=== PATIENT | male | born 1950 | race Caucasian/White ===

== ENCOUNTER → 2017-07-03 10:04 | Outpatient (CLI) | payer MEDICARE, OTHER, SELFPAY ==
[2017-07-03 12:37] LABS: Absolute Neutrophil Count 2.7 X10^3/uL (2.0-7.7); Basophil# 0.02 X10^3/uL; Basophil% 0.5 % (0-1); Eosinophil# 0.03 X10^3/uL; Eosinophils% 0.7 % (0-5); Hematocrit 44.7 % (40-54); Hemoglobin 15.4 g/dl (13.0-16.5); Lymphocyte % 25.5 % (19-41); Mean Corp Hgb Conc 34.5 g/gl (32-36); Mean Corpuscular Hgb 31.8 pg (27.0-32.0); Mean Corpuscular Volume 92.4 fL (80-94); Mean Platelet Vol. 9.9 fl (6.2-12.0); Monocyte# 0.44 X10^3/uL; Monocyte% 10.2 % (0-10); Neutrophil # 2.72 X10^3/uL (2.7-7.7); Neutrophil % 63.1 % (47-70); Platelet Count 218 K/mm3 (150-450); RBC Distribution Width CV 13.3 % (11.6-14.6); RBC Distribution Width SD 44.7 fl (35.1-43.9); Red Blood Count 4.84 M/mm3 (4.6-6.2); White Blood Count 4.3 K/mm3 (4.4-11.0)
[2017-07-03 12:38] LABS: POSITIVE COUNT NO; POSITIVE DIFFERENTIAL NO; POSITIVE MORPHOLOGY NO
[2017-07-03 13:04] LABS: ALB/GLOB Ratio 1.3 RATIO (0.9-2.4); AST(SGOT) 28 U/L (15-37); Alanine Aminotransfer ALT/SGPT 19 U/L (16-61); Albumin, Serum 3.8 g/dL (3.2-5.0); Alkaline Phosphatase 53 U/L (45-117); Anion Gap 8 (5-15); BUN 20 mg/dL (7-18); BUN/Creat Ratio 15.9 RATIO (10-20); Calcium,Total 8.5 mg/dL (8.5-10.1); Chloride 104 mmol/L (98-107); Creatinine, Serum 1.26 mg/dL (0.70-1.30); EST Glomerular Filtration Rate 60 mL/min (>60); Est Glom Filt Rate - Afr Amer 73 mL/min (>60); Glucose 79 mg/dL (74-106); Potassium 4.3 mmol/L (3.5-5.1); Protein, Total 6.8 g/dL (6.4-8.2); Sodium Level 139 mmol/L (136-145); Thyroid Stim Hormone (TSH) 1.24 uIU/mL (0.358-3.74)
== END ==
PROVIDERS: Family Provider Family Medicine Geriatric Medicine; PCP Family Medicine Geriatric Medicine; Visit Provider Family Medicine Geriatric Medicine
DX: I10 Essential (primary) hypertension (principal); E23.6 Other disorders of pituitary gland
CPT/HCPCS: 36415; 80053; 84403; 84443; 85025

== ENCOUNTER → 2017-08-07 06:01 | Outpatient (CLI) | payer MEDICARE, OTHER, SELFPAY ==
--- NOTE | 2017-08-07 16:30 | NEURO ---
NCS and/or EMG Patient Report Ordering Doctor: Boo Diaz Chi DATE OF SERVICE: 08/07/17 Martínez Chicas is a 67 year old male who presents for electrodiagnostic testing of the lower limbs. He reports numbness and tingling in both feet. Electrodiagnostic findings: Left peroneal motor nerve demonstrates normal distal latency and amplitude with mildly reduced conduction velocity. Right common peroneal nerve demonstrates prolonged distal latency with borderline reduced amplitude and borderline reduced conduction velocity. Normal tibial motor response bilaterally. Prolonged sural latency is noted bilaterally. Borderline prolonged superficial peroneal latency bilaterally medial plantar response is prolonged bilaterally. Prolonged H reflex noted bilaterally. Prolonged peroneal F-wave bilaterally. Electrodiagnostic impression: This is an abnormal study in the lower limbs. 1. Findings demonstrate peripheral polyneuropathy, with involvement of the sensory greater than motor nerve fibers. If there are any further questions, please not hesitate contact me.
== END ==
PROVIDERS: Family Provider Family Medicine Geriatric Medicine; PCP Family Medicine Geriatric Medicine; Visit Provider Family Medicine Geriatric Medicine
DX: R20.2 Paresthesia of skin (principal)
CPT/HCPCS: 95886; 95912

== ENCOUNTER → 2017-08-21 09:53 | Outpatient (CLI) | payer MEDICARE, OTHER, SELFPAY ==
[2017-08-21 10:34] LABS: Erythrocyte Sedimentation Rate < 1 mm/hr (0-20)
[2017-08-21 10:51] LABS: Hemoglobin A1c 4.9 % (4.2-6.3)
[2017-08-21 10:53] LABS: Vitamin B12 695 pg/mL (211-911)
[2017-08-21 11:21] LABS: Rheumatoid Factor < 10.0 IU/mL (<15); Thyroid Stim Hormone (TSH) 1.66 uIU/mL (0.358-3.74)
[2017-08-22 12:08] LABS: RNP Ab <0.2 AI (0.0-0.9); Smith Ab 0.4 AI (0.0-0.9)
[2017-08-23 09:13] LABS: ANTINUCLEAR ANTIBODIES DIRECT Negative (Negative)
[2017-08-23 20:07] LABS: Immunoglobulin A 149 mg/dL (61-437); Immunoglobulin G 781 mg/dL (700-1600); Immunoglobulin M 59 mg/dL (20-172); PROEL- A/G Ratio 1.7 (0.7-1.7); PROEL- Alpha-1 Globulin 0.2 g/dL (0.0-0.4); PROEL- Alpha-2 Globulin 0.4 g/dL (0.4-1.0); PROEL- Beta Globulin 0.8 g/dL (0.7-1.3); PROEL- Gamma Globulin 0.9 g/dL (0.4-1.8); PROEL- Globulin, Total 2.3 g/dL (2.2-3.9); PROEL- TOTAL PROTEIN 6.3 g/dL (6.0-8.5)
[2017-08-24 08:03] LABS: Creatinine, Urine 0.93 g/L (0.30-3.00); Hep C Antibodies <0.1 s/co ratio (0.0-0.9)
[2017-08-24 08:04] LABS: Immunofixation Result, Serum Comment: (.)
== END ==
PROVIDERS: Family Provider Family Medicine Geriatric Medicine; PCP Family Medicine Geriatric Medicine; Visit Provider Psychiatry & Neurology Neurology
DX: G62.9 Polyneuropathy, unspecified (principal); R53.83 Other fatigue; R73.9 Hyperglycemia, unspecified
CPT/HCPCS: 36415; 82175; 82570; 82607; 82746; 82784; 83036; 83655; 83825; 84165; 84443; 85652; 86038; 86235; 86334; 86431; 86803

== ENCOUNTER 2017-09-15 12:20 | Emergency (ER) | payer MEDICARE, OTHER, SELFPAY ==
[2017-09-15 12:22] VITALS: BP 130/62; PULSE 58; RESP 16; TEMP 37; O2SAT 97; BMI 27.5
--- NOTE | 2017-09-15 12:40 | RAD_ITS ---
STUDY: X-RAY - RIGHT KNEE REASON FOR EXAM: Male, 67 years old. Right knee pain TECHNIQUE: 4 view(s) of the knee. COMPARISON: None. FINDINGS: Normal visualized distal femur. Normal visualized proximal tibia and fibula. Normal proximal tibiofibular articulation. Normal medial femorotibial compartment. Normal lateral femorotibial compartment. Normal patellofemoral articulation. The soft tissue structures are unremarkable. RAD/Knee 4 or More Views IMPRESSION: Normal x-ray examination of the knee. Electronically Signed: Zac Gresham DO at 13:24 EDT Tel , Service support ,
--- NOTE | 2017-09-15 12:41 | ED.DCSUM_ITS ---
- ER Visit Summary Date of Service: 09/15/17 Chief Complaint: [] Right knee injury 4 years ago trying to get up History of Present Illness: The patient is a 67 M [] patient has Parkinson's disease for which she gets acupuncture, he also does exercises. He was doing exercises involving holding her weight up and down his right hand as he turned to get up holding this weight he somehow torqued his right knee, he has had pain in the right knee since he had an acupuncture therapy for the right knee and the pain actually resolved over the last few days the pain has reoccurred he comes in for evaluation he suffered no direct trauma except as above he indicates his Parkinson disease is well controlled with acupuncture he no longer shakes he is no longer stiff, he has been using a crutches intermittently to walk he has no history of any arthritic complaints are components and this is his only complaint Physical Examination: [] He is in no distress he obviously has knee pain he has a slight limp to his gait his head neck chest exam unremarkable the abdomen soft nontender his pelvis is nontender her back is nontender he has full range of motion of the hips the right knee there appears to be a small effusion involving the right knee the patella is in good position is able to flex and extend at the knee the tib-fib ankle and foot are unremarkable normal dorsi and plantarflexion normal sensation cap refill the hip exam is unremarkable for range of motion of the right hip the left lower extremities uninvolved neurologically he is awake alert his baseline the right lower extremity shows no signs of DVT the pain is directly over the knee only Test Results: [] Emergency Department Course and Treatment: [] That history of explained to him the concept of a ligamentous soft tissue bony injury x-rays obtained that shows nothing acute I explained the concept again of an occult injury he has not seen orthopedics this is been gone for 4 weeks given that he will be referred to Dr. Li weapons specialist for orthopedics he wants nothing for the pain he has crutches to use he will continue to his physical activities including acupuncture return for change in symptoms Treatment Plan: [] Disposition: [] Home stable Impression: [] Right knee injury possible occult injury This note was generated with [employer] software. It may contain incorrect words, spelling, and punctuation that were not noted in review of the chart prior to signing ED Disposition - Plan for ED Patient: Chief Complaint: Lower Extremity Injury Referrals: Boo Diaz Chi, MD [Primary Care Provider] -
--- NOTE | 2017-09-15 12:41 | ED.DEP ---
ED Disposition - Plan for ED Patient: Chief Complaint: Lower Extremity Injury Instructions: ED Sprain Knee Referrals: Boo Diaz Chi, MD [Primary Care Provider] - Paulino Li MD [STAFF PHYSICIAN] -
[2017-09-15 13:59] VITALS: BP 128/61; PULSE 60; RESP 16; O2SAT 98
== END 2017-09-15 14:00 | disposition home or self-care (01) ==
LOC: ED 13:12
PROVIDERS: Emergency Provider Emergency Medicine; Family Provider Family Medicine Geriatric Medicine; PCP Family Medicine Geriatric Medicine
DX: S89.91XA Unspecified injury of right lower leg, initial encounter (principal); X50.1XXA Overexertion from prolonged static or awkward postures, initial encounter; Y93.B9 Activity, other involving muscle strengthening exercises; Y92.9 Unspecified place or not applicable; G20 Parkinson's disease; Z79.899 Other long term (current) drug therapy
CPT/HCPCS: 73564; 99282

== ENCOUNTER → 2018-01-01 15:26 | Outpatient (CLI) | payer MEDICARE, OTHER, SELFPAY ==
[2018-01-01 16:14] LABS: Absolute Lymphocyte Count 0.88 X10^3/ul (0.83-4.51); Absolute Neutrophil Count 3.1 X10^3/uL (2.0-7.7); Basophil# 0.04 X10^3/uL; Basophil% 0.9 % (0-1); Eosinophil# 0.02 X10^3/uL; Eosinophils% 0.4 % (0-5); Hematocrit 43.8 % (40-54); Hemoglobin 15.1 g/dl (13.0-16.5); Lymphocyte # 0.88 X10^3/ul (4.0); Lymphocyte % 19.4 % (19-41); Mean Corp Hgb Conc 34.5 g/gl (32-36); Mean Corpuscular Hgb 31.3 pg (27.0-32.0); Mean Corpuscular Volume 90.7 fL (80-94); Mean Platelet Vol. 9.8 fl (6.2-12.0); Monocyte# 0.53 X10^3/uL; Monocyte% 11.7 % (0-10); Neutrophil # 3.07 X10^3/uL (2.7-7.7); Neutrophil % 67.6 % (47-70); POSITIVE COUNT NO; POSITIVE DIFFERENTIAL NO; POSITIVE MORPHOLOGY NO; Platelet Count 272 K/mm3 (150-450); RBC Distribution Width CV 13.4 % (11.6-14.6); RBC Distribution Width SD 44.2 fl (35.1-43.9); Red Blood Count 4.83 M/mm3 (4.6-6.2); White Blood Count 4.5 K/mm3 (4.4-11.0)
[2018-01-01 16:31] LABS: Vitamin D,25 Hydroxy 62.2 ng/mL (29.95-100.01)
[2018-01-01 16:39] LABS: ALB/GLOB Ratio 1.3 RATIO (0.9-2.4); AST(SGOT) 23 U/L (15-37); Alanine Aminotransfer ALT/SGPT 28 U/L (16-61); Albumin, Serum 3.8 g/dL (3.2-5.0); Alkaline Phosphatase 50 U/L (45-117); Anion Gap 12 (5-15); BUN 19 mg/dL (7-18); BUN/Creat Ratio 13.8 RATIO (10-20); Calcium,Total 8.8 mg/dL (8.5-10.1); Chloride 106 mmol/L (98-107); Creatinine, Serum 1.38 mg/dL (0.70-1.30); EST Glomerular Filtration Rate 54 mL/min (>60); Est Glom Filt Rate - Afr Amer 66 mL/min (>60); Glucose 74 mg/dL (74-106); PSA,Total - Annual Screen 2.27 ng/mL (0.00-4.00); Potassium 3.9 mmol/L (3.5-5.1); Protein, Total 6.8 g/dL (6.4-8.2); Sodium Level 143 mmol/L (136-145); Thyroid Stim Hormone (TSH) 2.04 uIU/mL (0.358-3.74)
[2018-01-03 13:44] LABS: Hep C Antibodies 0.1 s/co ratio (0.0-0.9)
== END ==
PROVIDERS: Family Provider Family Medicine Geriatric Medicine; PCP Family Medicine Geriatric Medicine; Visit Provider Family Medicine Geriatric Medicine
DX: I10 Essential (primary) hypertension (principal); E23.6 Other disorders of pituitary gland; E55.9 Vitamin D deficiency, unspecified; Z13.89 Encounter for screening for other disorder; Z12.5 Encounter for screening for malignant neoplasm of prostate
CPT/HCPCS: 36415; 80053; 82306; 84153; 84403; 84443; 85025; 86803; G0103

== ENCOUNTER → 2018-07-03 13:50 | Outpatient (CLI) | payer MEDICARE, OTHER, SELFPAY ==
[2018-07-03 16:25] LABS: Absolute Lymphocyte Count 0.89 X10^3/ul (0.83-4.51); Basophil# 0.03 X10^3/uL; Basophil% 0.7 % (0-1); Eosinophil# 0.03 X10^3/uL; Eosinophils% 0.7 % (0-5); Hematocrit 47.1 % (40-54); Hemoglobin 15.7 g/dl (13.0-16.5); Lymphocyte # 0.89 X10^3/ul (4.0); Lymphocyte % 19.7 % (19-41); Mean Corp Hgb Conc 33.3 g/gl (32-36); Mean Corpuscular Hgb 30.4 pg (27.0-32.0); Mean Corpuscular Volume 91.3 fL (80-94); Monocyte# 0.53 X10^3/uL; Monocyte% 11.7 % (0-10); Neutrophil # 3.03 X10^3/uL (2.7-7.7); Platelet Count 266 K/mm3 (150-450); RBC Distribution Width CV 14.6 % (11.6-14.6); RBC Distribution Width SD 48.1 fl (35.1-43.9); Red Blood Count 5.16 M/mm3 (4.6-6.2); White Blood Count 4.5 K/mm3 (4.4-11.0)
[2018-07-03 16:31] LABS: POSITIVE COUNT NO; POSITIVE DIFFERENTIAL NO; POSITIVE MORPHOLOGY NO
[2018-07-03 16:38] LABS: Vitamin D,25 Hydroxy 74.6 ng/mL (29.95-100.01)
[2018-07-03 16:39] LABS: ALB/GLOB Ratio 1.2 RATIO (0.9-2.4); AST(SGOT) 24 U/L (15-37); Alanine Aminotransfer ALT/SGPT 26 U/L (16-61); Albumin, Serum 3.9 g/dL (3.2-5.0); Alkaline Phosphatase 52 U/L (45-117); Anion Gap 7 (5-15); BUN 16 mg/dL (7-18); BUN/Creat Ratio 11.9 RATIO (10-20); Calcium,Total 8.7 mg/dL (8.5-10.1); Chloride 108 mmol/L (98-107); Creatinine, Serum 1.35 mg/dL (0.70-1.30); EST Glomerular Filtration Rate 56 mL/min (>60); Est Glom Filt Rate - Afr Amer 67 mL/min (>60); Globulin 3.2 g/dL (2.2-4.2); Glucose 67 mg/dL (74-106); PSA,Total - Annual Screen 3.11 ng/mL (0.00-4.00); Potassium 3.9 mmol/L (3.5-5.1); Protein, Total 7.1 g/dL (6.4-8.2); Sodium Level 140 mmol/L (136-145); Thyroid Stim Hormone (TSH) 1.61 uIU/mL (0.358-3.74)
== END ==
PROVIDERS: Family Provider Family Medicine Geriatric Medicine; PCP Family Medicine Geriatric Medicine; Visit Provider Family Medicine Geriatric Medicine
DX: I10 Essential (primary) hypertension (principal); Z12.5 Encounter for screening for malignant neoplasm of prostate; E23.6 Other disorders of pituitary gland; E55.9 Vitamin D deficiency, unspecified
CPT/HCPCS: 36415; 80053; 82306; 84153; 84403; 84443; 85025; G0103

== ENCOUNTER → 2018-08-29 06:35 | Outpatient (CLI) | payer MEDICARE, OTHER, SELFPAY ==
[2018-08-11 09:48] VITALS: BMI 26.9
--- NOTE | 2018-08-29 06:40 | ECHOCS_ITS ---
Reason For Study: CP Procedure This was a 2D Doppler, Color Flow transthoracic echocardiogram. The study was technically difficult. Contrast injection was performed. Exam performed in department. Left Ventricle Normal LV size. Left ventricular systolic function is normal. The estimated ejection fraction is 65 %. Diastolic function is indeterminate. No regional wall motion abnormalities noted. Right Ventricle Normal RV size. Normal systolic function. Atria The left atrium is mildly enlarged. The right atrium is mildly enlarged. No doppler evidence for ASD. Mitral Valve There is no mitral annular calcification. Normal mitral valve. Trivial mitral valve insufficiency. Tricuspid Valve Normal tricuspid valve. Mild tricuspid valve insufficiency. Right ventricular systolic pressure estimated to be 25 mmHg. Aortic Valve Trisinus/trileaflet aortic valve. Normal aortic valve. Mild (1+) aortic valve insufficiency. Pulmonic Valve The pulmonic valve is not well visualized. Great Vessels Normal sized aortic root. Pericardium/Pleural No pericardial effusion. Medication Diluted definity 4ml given slow IV push to enhance endocardial definition. MMode/2D Measurements & Calculations LVIDd: 4.1 cm IVSd: 1.1 cm Ao root diam: 3.8 cm LVIDs: 2.6 cm LVPWd: 1.3 cm LA dimension: 3.4 cm RVDd: 3.8 cm FS: 37.2 % LAV(MOD-bp): 62.0 ml LA A4 area: 21.6 cm2 RA A4 area: 20.7 cm2 LAV(MOD-bp) Indexed: 32.3 ml/m2 LAV(MOD-sp2): 52.6 ml LAV(MOD-sp4): 70.5 ml Time Measurements MV dec time: 0.25 sec Doppler Measurements & Calculations MV E max dean: 64.5 cm/sec Lat Peak E' Dean: 6.8 cm/sec Med Peak E' Dean: 6.9 cm/sec MV A max dean: 81.5 cm/sec E/E' lat: 9.5 E/E' med: 9.3 MV E/A: 0.79 MV V2 max: 87.6 cm/sec MV P1/2t max dean: 70.1 cm/sec Ao V2 max: 117.8 cm/sec MV max P.1 mmHg MV P1/2t: 78.1 msec Ao max P.5 mmHg MV V2 mean: 44.9 cm/sec MV dec slope: 262.8 cm/sec2 MV mean P.97 mmHg MV V2 VTI: 25.1 cm MVA(P1/2t): 2.8 cm2 AI max dean: 514.2 cm/sec LV V1 max: 86.1 cm/sec PA V2 max: 114.0 cm/sec AI max P.8 mmHg LV V1 max P.0 mmHg AI dec slope: 207.8 cm/sec2 AI P1/2t: 724.8 msec TR max dean: 231.7 cm/sec TR max P.5 mmHg Interpretation Summary The study was technically difficult. Contrast injection was performed. Left ventricular systolic function is normal. The estimated ejection fraction is 65 %. The left atrium is mildly enlarged. The right atrium is mildly enlarged. Trivial mitral valve insufficiency. Mild tricuspid valve insufficiency. Mild (1+) aortic valve insufficiency. Right ventricular systolic pressure estimated to be 25 mmHg. Diastolic function is indeterminate. Ordering Physician: Lm Paulino Referring Physician: Lm Paulino Performed By: Nuno Schaffer RCS
--- NOTE | 2018-08-29 13:20 | STRESSREP_ITS ---
Stress Test Report Date: 08/29/2018 Procedure: Exercise tolerance test/imaging study Indications: Chest pain Consent: Per the patient Procedure: The patient exercised on a Dewey protocol for 7 minutes completing Stage II and 1 minute of Stage III achieving a peak heart rate of 162 bpm (108 % predicted maximal heart rate) with a peak blood pressure 170/98 mmHg and a peak MET capacity of 8 METs. The baseline ECG demonstrated normal sinus rhythm. The peak exercise ECG demonstrated no obvious ECG changes. There were occasional PACs, nonconducted PACs, repetitive PACs, and PVCs during exercise and recovery and a brief episode of nonsustained wide-complex tachycardia comparing compatible with an acceleration-dependent aberrancy. The functional capacity was considered good. There was no complaint of chest discomfort during exercise or recovery. The examination was discontinued secondary to dyspnea. Impression: 1. Technically adequate (percent predicted maximal heart rate greater than 85%) exercise tolerance test 2. Peak exercise ECG with no obvious ECG changes 3. There were occasional PACs, nonconducted PACs, repetitive PACs, and PVCs during exercise and recovery and a brief episode of nonsustained wide-complex tachycardia comparing compatible with an acceleration-dependent aberrancy. 4. Nuclear images pending Myocardial perfusion imaging study: Technique: The patient was injected with 10 mCi of technetium 99m Cardiolite and subsequently rest SPECT Cardiolite nuclear imaging was obtained in the horizontal long, vertical long, and short axis views. The patient exercised on a Dewey protocol for 7 minutes completing Stage II and 1 minute of Stage III achieving a peak heart rate of 162 bpm (108 % predicted maximal heart rate) with a peak blood pressure 170/98 mmHg and a peak MET capacity of 8 METs.The patient was injected with 33 mCi of technetium 99m Cardiolite and subsequently stress SPECT Cardiolite nuclear imaging was obtained in the horizontal long, vertical long, and short axis views. A gated Cardiolite study at peak stress was obtained. Interpretation: Rest and stress SPECT Cardiolite nuclear imaging status post realignment, normalization, and attenuation correction, demonstrates the appearance of relative uniform tracer uptake and myocardial perfusion appearing within normal limits. There is end systolic thickening and brightening. The gated Cardiolite study demonstrates myocardial thickening and inward wall motion. The reported LVEF is 69 %. Impression: 1. Rest and stress SPECT Cardiolite nuclear imaging demonstrate relative uniform tracer uptake and myocardial perfusion appearing within normal limits. 2. The gated Cardiolite study reports an LVEF of 69 %. This note was generated with [employer] software. It may contain incorrect words, spelling, and punctuation that were not noted in checking the note before signing.
== END ==
PROVIDERS: Family Provider Family Medicine Geriatric Medicine; PCP Family Medicine Geriatric Medicine; Referring Provider Internal Medicine Cardiovascular Disease; Visit Provider Internal Medicine Cardiovascular Disease
DX: R07.9 Chest pain, unspecified (principal); I34.0 Nonrheumatic mitral (valve) insufficiency
CPT/HCPCS: 78452; 93017; 93306; A9500; Q9957; A4216; C8929

== ENCOUNTER → 2019-01-09 08:36 | Outpatient (CLI) | payer MEDICARE, OTHER, SELFPAY ==
[2018-08-11 09:48] VITALS: BMI 26.9
[2019-01-09 13:21] LABS: Absolute Lymphocyte Count 0.92 X10^3/uL (0.83-4.51); Absolute Neutrophil Count 2.9 X10^3/uL (2.0-7.7); Basophil# 0.03 X10^3/uL; Basophil% 0.7 % (0-1); Eosinophil# 0.05 X10^3/uL; Eosinophils% 1.2 % (0-5); Hematocrit 39.8 % (40-54); Hemoglobin 13.1 g/dL (13.0-16.5); Lymphocyte # 0.92 X10^3/ul (4.0); Lymphocyte % 21.4 % (19-41); Mean Corp Hgb Conc 32.9 g/dL (32-36); Mean Corpuscular Hgb 29.5 pg (27.0-32.0); Mean Corpuscular Volume 89.6 fL (80-94); Mean Platelet Vol. 9.6 fl (6.2-12.0); Monocyte# 0.43 X10^3/uL; NRBC Flagged by Analyzer 0 % (0-5); Neutrophil # 2.86 X10^3/uL (2.7-7.7); Neutrophil % 66.7 % (47-70); Platelet Count 270 K/mm3 (150-450); RBC Distribution Width CV 13.1 % (11.6-14.6); RBC Distribution Width SD 43.3 fl (35.1-43.9); Red Blood Count 4.44 M/mm3 (4.6-6.2); White Blood Count 4.3 K/mm3 (4.4-11.0)
[2019-01-09 13:42] LABS: Vitamin D,25 Hydroxy 63.4 ng/mL (29.95-100.01)
[2019-01-09 13:52] LABS: ALB/GLOB Ratio 1.3 RATIO (0.9-2.4); AST(SGOT) 17 U/L (15-37); Alanine Aminotransfer ALT/SGPT 15 U/L (16-61); Albumin, Serum 3.5 g/dL (3.2-5.0); Alkaline Phosphatase 56 U/L (45-117); Anion Gap 5 (5-15); BUN 20 mg/dL (7-18); BUN/Creat Ratio 15.3 RATIO (10-20); Calcium,Total 8.2 mg/dL (8.5-10.1); Chloride 111 mmol/L (98-107); Creatinine, Serum 1.31 mg/dL (0.70-1.30); EST Glomerular Filtration Rate 57 mL/min (>60); Est Glom Filt Rate - Afr Amer 70 mL/min (>60); Globulin 2.7 g/dL (2.2-4.2); Glucose 84 mg/dL (74-106); Potassium 3.9 mmol/L (3.5-5.1); Protein, Total 6.2 g/dL (6.4-8.2); Sodium Level 141 mmol/L (136-145); Thyroid Stim Hormone (TSH) 1.42 uIU/mL (0.358-3.74)
== END ==
PROVIDERS: Family Provider Family Medicine Geriatric Medicine; PCP Family Medicine Geriatric Medicine; Visit Provider Family Medicine Geriatric Medicine
DX: I10 Essential (primary) hypertension (principal); E23.6 Other disorders of pituitary gland; E55.9 Vitamin D deficiency, unspecified; Z12.5 Encounter for screening for malignant neoplasm of prostate
CPT/HCPCS: 36415; 80053; 82306; 84403; 84443; 85025

== ENCOUNTER → 2019-03-20 12:21 | Outpatient (CLI) | payer MEDICARE, OTHER, SELFPAY ==
[2018-08-11 09:48] VITALS: BMI 26.9
[2019-03-25 03:06] LABS: Lyme IgG P18 Ab Absent (.); Lyme IgG P23 Ab Absent (.); Lyme IgG P28 Ab Absent (.); Lyme IgG P30 Ab Absent (.); Lyme IgG P39 Ab Absent (.); Lyme IgG P41 Ab Absent (.); Lyme IgG P45 Ab Absent (.); Lyme IgG P58 Ab Absent (.); Lyme IgG P66 Ab Absent (.); Lyme IgG P93 Ab Absent (.); Lyme IgM P23 Ab Absent (.); Lyme IgM P39 Ab Absent (.); Lyme IgM P41 Ab Absent (.)
[2019-03-25 11:46] LABS: Lyme IgG WB Interpretation Negative (.); Lyme IgM WB Interpretation Negative (.)
== END ==
PROVIDERS: Family Provider Family Medicine Geriatric Medicine; PCP Family Medicine Geriatric Medicine; Referring Provider Family Medicine Geriatric Medicine; Visit Provider Family Medicine Geriatric Medicine
DX: T07.XXXA Unspecified multiple injuries, initial encounter (principal); X58.XXXA Exposure to other specified factors, initial encounter; Y93.9 Activity, unspecified; Y92.9 Unspecified place or not applicable; Y99.9 Unspecified external cause status
CPT/HCPCS: 36415; 86617

== ENCOUNTER → 2019-05-14 10:37 | Outpatient (CLI) | payer MEDICARE, OTHER, SELFPAY ==
[2018-08-11 09:48] VITALS: BMI 26.9
--- NOTE | 2019-05-14 10:43 | VDLE_ITS ---
Reason For Study: edema RIGHT LEFT GSV is normal. GSV is normal. CFV is compressible, spontaneous, phasic, CFV is compressible, spontaneous, phasic, competent and demonstrates normal competent, and demonstrates normal augmentation. augmentation. FV is compressible, spontaneous, phasic, FV is compressible, spontaneous, phasic, competent and demonstrates normal competent and demonstrates normal augmentation. augmentation. POP V is compressible, spontaneous, phasic, POP V is compressible, spontaneous, phasic, competent and demonstrates normal competent and demonstrates normal augmentation. augmentation. T/P Trunk is compressible. T/P Trunk is compressible. PTV is compressible. PTV is compressible. RT PerV is compressible. LT PerV is compressible. Procedure Exam performed in department. The exam was diagnostic. A preliminary report was called and/or faxed to Dr. Diaz's office. Interpretation Summary Deep veins of the lower extremities are bilaterally patent and compressible segmentally. There is no evidence of deep vein thrombosis on either side. Valvular competence appears intact within the proximal deep venous systems bilaterally. The great saphenous veins appear bilaterally patent and compressible segmentally. Ordering Physician: Boo Diaz Performed By: Kobe Green RVT
--- NOTE | 2019-05-14 11:08 | RAD_ITS ---
STUDY: X-RAY - LEFT ANKLE REASON FOR EXAM: Male, 68 years old. Ankle injury last week with bruising, pain and swelling. TECHNIQUE: 2 view(s) of the ankle. COMPARISON: None. FINDINGS: Normal visualized distal tibia and fibula. Normal medial and lateral malleoli. Normal tibiotalar articulation and ankle mortise. Normal visualized talus and calcaneus. The visualized subtalar, talonavicular, calcaneocuboid and tarsal articulations are normal. The soft tissue structures are unremarkable. RAD/Ankle 2 Views IMPRESSION: Normal x-ray examination of the ankle. Electronically Signed: Sarbjit Gould MD at 11:34 EST , Service support ,
== END ==
PROVIDERS: Family Provider Family Medicine Geriatric Medicine; PCP Family Medicine Geriatric Medicine; Referring Provider Family Medicine Geriatric Medicine; Visit Provider Family Medicine Geriatric Medicine
DX: R60.0 Localized edema (principal); M25.579 Pain in unspecified ankle and joints of unspecified foot
CPT/HCPCS: 73600; 93970

== ENCOUNTER → 2019-07-17 09:02 | Outpatient (CLI) | payer MEDICARE, OTHER, SELFPAY ==
[2018-08-11 09:48] VITALS: BMI 26.9
[2019-07-17 12:36] LABS: Absolute Lymphocyte Count 0.99 X10^3/uL (0.83-4.51); Absolute Neutrophil Count 2.9 X10^3/uL (2.0-7.7); Basophil# 0.04 X10^3/uL; Basophil% 0.9 % (0-1); Eosinophil# 0.07 X10^3/uL; Eosinophils% 1.5 % (0-5); Hemoglobin 13.8 g/dL (13.0-16.5); Lymphocyte # 0.99 X10^3/ul (4.0); Lymphocyte % 21.7 % (19-41); Mean Corp Hgb Conc 32.9 g/dL (32-36); Mean Corpuscular Hgb 28.5 pg (27.0-32.0); Mean Corpuscular Volume 86.6 fL (80-94); Mean Platelet Vol. 10.4 fl (6.2-12.0); Monocyte# 0.61 X10^3/uL; Monocyte% 13.3 % (0-10); NRBC Flagged by Analyzer 0 % (0-5); Neutrophil # 2.85 X10^3/uL (2.7-7.7); Neutrophil % 62.4 % (47-70); Platelet Count 243 K/mm3 (150-450); RBC Distribution Width CV 14.5 % (11.6-14.6); RBC Distribution Width SD 45.5 fl (35.1-43.9); Red Blood Count 4.85 M/mm3 (4.6-6.2); White Blood Count 4.6 K/mm3 (4.4-11.0)
[2019-07-17 12:41] LABS: Vitamin D,25 Hydroxy 78.7 ng/mL
[2019-07-17 12:49] LABS: ALB/GLOB Ratio 1.2 RATIO (0.9-2.4); AST(SGOT) 22 U/L (15-37); Alanine Aminotransfer ALT/SGPT 18 U/L (16-61); Albumin, Serum 3.6 g/dL (3.2-5.0); Alkaline Phosphatase 55 U/L (45-117); Anion Gap 4 (5-15); BUN 18 mg/dL (7-18); BUN/Creat Ratio 12.3 RATIO (10-20); Calcium,Total 8.8 mg/dL (8.5-10.1); Chloride 112 mmol/L (98-107); Creatinine, Serum 1.46 mg/dL (0.70-1.30); EST Glomerular Filtration Rate 51 mL/min (>60); Est Glom Filt Rate - Afr Amer 61 mL/min (>60); Globulin 3.1 g/dL (2.2-4.2); Glucose 75 mg/dL (74-106); Potassium 4.3 mmol/L (3.5-5.1); Protein, Total 6.7 g/dL (6.4-8.2); Sodium Level 141 mmol/L (136-145); Thyroid Stim Hormone (TSH) 1.66 uIU/mL (0.358-3.74)
== END ==
PROVIDERS: PCP Family Medicine Geriatric Medicine; Visit Provider Family Medicine Geriatric Medicine
DX: I10 Essential (primary) hypertension (principal); E23.6 Other disorders of pituitary gland; E55.9 Vitamin D deficiency, unspecified
CPT/HCPCS: 36415; 80053; 82306; 84403; 84443; 85025

== ENCOUNTER → 2020-01-15 09:22 | Outpatient (CLI) | payer MEDICARE, OTHER, SELFPAY ==
[2019-12-01 10:54] VITALS: BMI 26.6
[2020-01-15 12:12] LABS: Absolute Lymphocyte Count 1.03 X10^3/uL (0.83-4.51); Absolute Neutrophil Count 2.4 X10^3/uL (2.0-7.7); Basophil# 0.03 X10^3/uL; Basophil% 0.7 % (0-1); Eosinophil# 0.06 X10^3/uL; Eosinophils% 1.5 % (0-5); Hematocrit 43.4 % (40-54); Hemoglobin 14.8 g/dL (13.0-16.5); Lymphocyte # 1.03 X10^3/ul (4.0); Lymphocyte % 25.7 % (19-41); Mean Corp Hgb Conc 34.1 g/dL (32-36); Mean Corpuscular Hgb 31.6 pg (27.0-32.0); Mean Corpuscular Volume 92.5 fL (80-94); Mean Platelet Vol. 9.5 fl (6.2-12.0); Monocyte# 0.51 X10^3/uL; Monocyte% 12.7 % (0-10); NRBC Flagged by Analyzer 0 % (0-5); Neutrophil # 2.37 X10^3/uL (2.7-7.7); Neutrophil % 59.2 % (47-70); Platelet Count 246 K/mm3 (150-450); RBC Distribution Width CV 13.4 % (11.6-14.6); RBC Distribution Width SD 45.4 fl (35.1-43.9); Red Blood Count 4.69 M/mm3 (4.6-6.2)
[2020-01-15 12:53] LABS: Vitamin D,25 Hydroxy 84.1 ng/mL
[2020-01-15 13:19] LABS: ALB/GLOB Ratio 1.4 RATIO (0.9-2.4); AST(SGOT) 25 U/L (15-37); Alanine Aminotransfer ALT/SGPT 24 U/L (16-61); Albumin, Serum 3.9 g/dL (3.2-5.0); Alkaline Phosphatase 54 U/L (45-117); Anion Gap 5 (5-15); BUN 19 mg/dL (7-18); BUN/Creat Ratio 13.4 RATIO (10-20); Calcium,Total 8.8 mg/dL (8.5-10.1); Chloride 108 mmol/L (98-107); Creatinine, Serum 1.42 mg/dL (0.70-1.30); EST Glomerular Filtration Rate 52 mL/min (>60); Est Glom Filt Rate - Afr Amer 63 mL/min (>60); Globulin 2.8 g/dL (2.2-4.2); Glucose 57 mg/dL (74-106); Potassium 4.1 mmol/L (3.5-5.1); Protein, Total 6.7 g/dL (6.4-8.2); Sodium Level 143 mmol/L (136-145); Thyroid Stim Hormone (TSH) 1.64 uIU/mL (0.358-3.74)
== END ==
PROVIDERS: PCP Family Medicine Geriatric Medicine; Visit Provider Family Medicine Geriatric Medicine
DX: E23.6 Other disorders of pituitary gland (principal); E55.9 Vitamin D deficiency, unspecified; I10 Essential (primary) hypertension
CPT/HCPCS: 36415; 80053; 82306; 84403; 84443; 85025

== ENCOUNTER → 2020-02-02 09:56 | Outpatient (CLI) | payer MEDICARE, OTHER, SELFPAY ==
[2020-02-02 08:52] VITALS: BMI 26.3
[2020-02-02 11:50] LABS: Vitamin B12 444 pg/mL (211-911)
[2020-02-03 16:09] LABS: Free Lambda Light Chains 12.8 mg/L (5.7-26.3)
== END ==
PROVIDERS: PCP Family Medicine Geriatric Medicine; Referring Provider Psychiatry & Neurology Neurology; Visit Provider Psychiatry & Neurology Neurology
DX: G62.9 Polyneuropathy, unspecified (principal)
CPT/HCPCS: 36415; 82607; 82746; 83883

== ENCOUNTER → 2020-03-01 09:33 | Outpatient (CLI) | payer MEDICARE, OTHER, SELFPAY ==
[2020-02-02 08:52] VITALS: BMI 26.3
[2020-03-02 16:08] LABS: Albumin 3.8 g/dL (2.9-4.4); Alpha-1-Globulins 0.2 g/dL (0.0-0.4); Alpha-2-Globulins 0.6 g/dL (0.4-1.0); Gamma Globulin 0.8 g/dL (0.4-1.8); Immunoglobulin A 173 mg/dL (61-437); Immunoglobulin G 906 mg/dL (603-1613); Immunoglobulin M 59 mg/dL (15-143); PROEL- TOTAL PROTEIN 6.2 g/dL (6.0-8.5)
== END ==
PROVIDERS: PCP Family Medicine Geriatric Medicine; Referring Provider Nurse Practitioner Family; Visit Provider Nurse Practitioner Family
DX: G62.9 Polyneuropathy, unspecified (principal)
CPT/HCPCS: 36415; 82784; 84165; 86334; 86335

== ENCOUNTER → 2020-07-12 11:43 | Outpatient (CLI) | payer MEDICARE, OTHER, SELFPAY ==
[2020-03-16 11:05] VITALS: BMI 27.0
[2020-07-12 12:27] LABS: Absolute Lymphocyte Count 0.92 X10^3/uL (0.83-4.51); Absolute Neutrophil Count 3.4 X10^3/uL (2.0-7.7); Basophil# 0.03 X10^3/uL; Basophil% 0.6 % (0-1); Eosinophil# 0.05 X10^3/uL; Hematocrit 43.9 % (40-54); Hemoglobin 14.9 g/dL (13.0-16.5); Lymphocyte # 0.92 X10^3/ul (4.0); Lymphocyte % 19.1 % (19-41); Mean Corp Hgb Conc 33.9 g/dL (32-36); Mean Corpuscular Hgb 30.9 pg (27.0-32.0); Mean Corpuscular Volume 91.1 fL (80-94); Mean Platelet Vol. 9.5 fl (6.2-12.0); Monocyte# 0.43 X10^3/uL; Monocyte% 8.9 % (0-10); NRBC Flagged by Analyzer 0 % (0-5); Neutrophil # 3.37 X10^3/uL (2.7-7.7); Platelet Count 281 K/mm3 (150-450); RBC Distribution Width SD 42.7 fl (35.1-43.9); Red Blood Count 4.82 M/mm3 (4.6-6.2); White Blood Count 4.8 K/mm3 (4.4-11.0)
[2020-07-12 12:33] LABS: Vitamin D,25 Hydroxy 62.6 ng/mL
[2020-07-12 12:54] LABS: ALB/GLOB Ratio 1.2 RATIO (0.9-2.4); AST(SGOT) 25 U/L (15-37); Alanine Aminotransfer ALT/SGPT 20 U/L (16-61); Albumin, Serum 3.6 g/dL (3.2-5.0); Alkaline Phosphatase 63 U/L (45-117); Anion Gap 6 (5-15); BUN 17 mg/dL (7-18); Calcium,Total 8.7 mg/dL (8.5-10.1); Chloride 108 mmol/L (98-107); Creatinine, Serum 1.31 mg/dL (0.70-1.30); EST Glomerular Filtration Rate 57 mL/min (>60); Est Glom Filt Rate - Afr Amer 69 mL/min (>60); Globulin 2.9 g/dL (2.2-4.2); Glucose 78 mg/dL (74-106); Potassium 4.3 mmol/L (3.5-5.1); Protein, Total 6.5 g/dL (6.4-8.2); Sodium Level 142 mmol/L (136-145); Thyroid Stim Hormone (TSH) 1.33 uIU/mL (0.358-3.74)
== END ==
PROVIDERS: PCP Family Medicine Geriatric Medicine; Visit Provider Family Medicine Geriatric Medicine
DX: E23.6 Other disorders of pituitary gland (principal); E55.9 Vitamin D deficiency, unspecified; I10 Essential (primary) hypertension
CPT/HCPCS: 36415; 80053; 82306; 84403; 84443; 85025

== ENCOUNTER → 2020-08-25 14:57 | Outpatient (CLI) | payer MEDICARE, OTHER, SELFPAY ==
[2020-03-16 11:05] VITALS: BMI 27.0
[2020-08-29 16:08] LABS: Albumin 3.6 g/dL (2.9-4.4); Alpha-1-Globulins 0.2 g/dL (0.0-0.4); Alpha-2-Globulins 0.4 g/dL (0.4-1.0); Free Kappa Light Chains 27.4 mg/L (3.3-19.4); Free Lambda Light Chains 12.7 mg/L (5.7-26.3); Gamma Globulin 0.7 g/dL (0.4-1.8); Immunoglobulin A 146 mg/dL (61-437); Immunoglobulin G 761 mg/dL (603-1613); Immunoglobulin M 51 mg/dL (15-143); PROEL- TOTAL PROTEIN 5.7 g/dL (6.0-8.5)
== END ==
PROVIDERS: PCP Family Medicine Geriatric Medicine; Referring Provider Nurse Practitioner Family; Visit Provider Nurse Practitioner Family
DX: G62.9 Polyneuropathy, unspecified (principal)
CPT/HCPCS: 36415; 82784; 83883; 84165; 86334

== ENCOUNTER → 2020-10-05 06:33 | Outpatient (CLI) | payer MEDICARE, OTHER, SELFPAY ==
[2020-09-22 13:53] VITALS: BMI 26.9
--- NOTE | 2020-10-05 09:17 | STRESSREP_ITS ---
Stress Test Report Date: 10-05-2020 Procedure: Exercise tolerance test/imaging study Indications: Shortness of breath/dyspnea on exertion; chest pain; fatigue Consent: Per the patient Procedure: The patient exercised on a Dewey protocol for 4 minutes and 10 completing Stage I and 1 minute and 10 seconds of Stage II achieving a peak heart rate of 129 bpm (87% predicted maximal heart rate) with a peak blood pressure 190/84 mmHg and a peak MET capacity of 6 METs. The baseline ECG demonstrated normal sinus rhythm; anteroseptal WV of indeterminate age cannot be excluded. The peak exercise ECG demonstrated somatic/motion artifact with no obvious ECG changes. There was a rare PAC pretest and during exercise and an occasional PVC during exercise and an occasional PAC and PVC during recovery as well as a rare ventricular couplet/triplet during recovery. The functional capacity was considered decreased. There was no complaint of chest discomfort during exercise or recovery. The examination was discontinued secondary to dyspnea and leg dragging. Impression: 1. Technically adequate (percent predicted maximal heart rate greater than 85%) exercise tolerance test 2. Peak exercise ECG with somatic/motion artifact with no obvious ECG changes 3. There was a rare PAC pretest and during exercise and an occasional PVC during exercise and an occasional PAC and PVC during recovery as well as a rare ventricular couplets/triplets during recovery 4. Nuclear images pending Myocardial perfusion imaging study: Technique: The patient was injected with 10.9 mCi of technetium 99m Cardiolite and subsequently rest SPECT Cardiolite nuclear imaging was obtained in the horizontal long, vertical long, and short axis views. The patient exercised on a Dewey protocol for 4 minutes and 10 completing Stage I and 1 minute and 10 seconds of Stage II achieving a peak heart rate of 129 bpm (87% predicted maximal heart rate) with a peak blood pressure 190/84 mmHg and a peak MET capacity of 6 METs. The patient was injected with 33.5 mCi of technetium 99m Cardiolite and subsequently stress SPECT Cardiolite nuclear imaging was obtained in the horizontal long, vertical long, and short axis views. A gated Cardiolite study at peak stress was obtained. Interpretation: Rest and stress SPECT Cardiolite nuclear imaging status post realignment, normalization, and attenuation correction, demonstrates the appearance of body motion during image acquisition and otherwise relative uniform tracer uptake and myocardial perfusion appearing within normal limits. There is end systolic thickening and brightening. The gated Cardiolite study demonstrates myocardial thickening and inward wall motion. The reported LVEF is 68%. Impression: 1. Rest and stress SPECT Cardiolite nuclear imaging demonstrate the appearance of an element of body motion during image acquisition and otherwise relative uniform tracer uptake and myocardial perfusion appearing within normal limits with no myocardial perfusion findings considered diagnostic for stress-induced myocardial ischemia. 2. The gated Cardiolite study reports an LVEF of 68%. This note was generated with [employer] software. It may contain incorrect words, spelling, and punctuation that were not noted in checking the note before signing.
== END ==
PROVIDERS: PCP Family Medicine Geriatric Medicine; Referring Provider Physician Assistant Medical; Visit Provider Physician Assistant Medical
DX: R07.89 Other chest pain (principal)
CPT/HCPCS: 78452; 93017; A9500; A4216

== ENCOUNTER → 2020-11-10 09:54 | Outpatient (CLI) | payer MEDICARE, OTHER, SELFPAY ==
[2020-09-22 13:53] VITALS: BMI 26.9
[2020-11-10 12:04] LABS: Absolute Lymphocyte Count 0.78 X10^3/uL (0.83-4.51); Absolute Neutrophil Count 2.2 X10^3/uL (2.0-7.7); Basophil# 0.03 X10^3/uL; Basophil% 0.9 % (0-1); Eosinophil# 0.04 X10^3/uL; Eosinophils% 1.1 % (0-5); Hematocrit 43.2 % (40-54); Hemoglobin 14.4 g/dL (13.0-16.5); Lymphocyte # 0.78 X10^3/ul (0.83-4.51); Lymphocyte % 22.3 % (19-41); Mean Corp Hgb Conc 33.3 g/dL (32-36); Mean Corpuscular Hgb 29.7 pg (27.0-32.0); Mean Corpuscular Volume 89.1 fL (80-94); Monocyte# 0.49 X10^3/uL; NRBC Flagged by Analyzer 0 % (0-5); Neutrophil # 2.15 X10^3/uL (2.7-7.7); Neutrophil % 61.7 % (47-70); Platelet Count 211 K/mm3 (150-450); RBC Distribution Width CV 13.2 % (11.6-14.6); RBC Distribution Width SD 42.9 fl (35.1-43.9); Red Blood Count 4.85 M/mm3 (4.6-6.2); White Blood Count 3.5 K/mm3 (4.4-11.0)
[2020-11-10 12:17] LABS: Vitamin B12 890 pg/mL (211-911); Vitamin D,25 Hydroxy 73.3 ng/mL
[2020-11-10 12:24] LABS: ALB/GLOB Ratio 1.4 RATIO (0.9-2.4); AST(SGOT) 21 U/L (15-37); Alanine Aminotransfer ALT/SGPT 21 U/L (16-61); Albumin, Serum 3.7 g/dL (3.2-5.0); Alkaline Phosphatase 55 U/L (45-117); Anion Gap 2 (5-15); BUN 20 mg/dL (7-18); BUN/Creat Ratio 15.2 RATIO (10-20); Calcium,Total 8.4 mg/dL (8.5-10.1); Chloride 109 mmol/L (98-107); Creatinine, Serum 1.32 mg/dL (0.70-1.30); EST Glomerular Filtration Rate 57 mL/min (>60); Est Glom Filt Rate - Afr Amer 69 mL/min (>60); Globulin 2.7 g/dL (2.2-4.2); Glucose 78 mg/dL (74-106); Protein, Total 6.4 g/dL (6.4-8.2); Sodium Level 139 mmol/L (136-145)
== END ==
PROVIDERS: PCP Family Medicine Geriatric Medicine; Visit Provider Family Medicine Geriatric Medicine
DX: E55.9 Vitamin D deficiency, unspecified (principal); R53.83 Other fatigue
CPT/HCPCS: 36415; 80053; 82306; 82607; 84443; 85025

== ENCOUNTER → 2020-11-16 08:04 | Outpatient (CLI) | payer MEDICARE, OTHER, SELFPAY ==
[2020-09-22 13:53] VITALS: BMI 26.9
--- NOTE | 2020-11-16 12:52 | PFTCOMP_ITS ---
COMPLETE PULMONARY FUNCTION TEST INTERPRETATION Brief HPI: Patient is a 70 year old male, currently under the care of Dr. Diaz, who presents to [facility] for complete pulmonary function tests secondary to diagnosis of dyspnea. Respiratory therapist reports good effort and reproducible results. Interpretation: Forced expiration spirometry shows no large airways obstructive ventilatory defect with an FEV1 of 136% predicted. There is no significant bronchodilator response by strict ATS criteria. Spirograms are of good quality and plateau normally. The respiratory flow volume loop shows a normal pattern. Lung volumes by body plethysmography show an elevated total lung capacity at 8. 46 L, 141% predicted. All other lung volumes are increased symmetrically. Diffusion capacity by carbon monoxide is elevated at 133% predicted. The airway resistance is normal. No previous pulmonary function tests were available for review. Impression: These pulmonary function tests are within normal limits. Could consider a bronchoprovocation study if asthma is a consideration.
== END ==
PROVIDERS: PCP Family Medicine Geriatric Medicine; Referring Provider Family Medicine Geriatric Medicine; Visit Provider Family Medicine Geriatric Medicine
DX: R06.02 Shortness of breath (principal)
CPT/HCPCS: 94060; 94726; 94729

== ENCOUNTER → 2020-12-22 | Outpatient (CLI) | payer MEDICARE, OTHER, SELFPAY ==
[2020-12-22 11:36] VITALS: BMI 26.9
[2020-12-22 19:09] LABS: Probe Check PASS; Specimen Processing Control PASS
== END | disposition home or self-care (01) ==
LOC: LABSPEC 16:22
PROVIDERS: PCP Family Medicine Geriatric Medicine; Visit Provider Physician Assistant
DX: U07.1 COVID-19 (principal); R06.02 Shortness of breath; R53.1 Weakness
CPT/HCPCS: 87635; U0005; U0003

== ENCOUNTER → 2021-01-19 14:11 | Outpatient (CLI) | payer MEDICARE, OTHER, SELFPAY ==
[2021-01-19 15:06] LABS: Absolute Lymphocyte Count 0.84 X10^3/uL (0.83-4.51); Absolute Neutrophil Count 2.8 X10^3/uL (2.0-7.7); Basophil# 0.03 X10^3/uL; Basophil% 0.7 % (0-1); Eosinophil# 0.13 X10^3/uL; Hematocrit 41.5 % (40-54); Hemoglobin 13.8 g/dL (13.0-16.5); Lymphocyte # 0.84 X10^3/ul (0.83-4.51); Lymphocyte % 19.6 % (19-41); Mean Corp Hgb Conc 33.3 g/dL (32-36); Mean Corpuscular Hgb 30.1 pg (27.0-32.0); Mean Corpuscular Volume 90.4 fL (80-94); Mean Platelet Vol. 9.7 fl (6.2-12.0); Monocyte# 0.52 X10^3/uL; Monocyte% 12.1 % (0-10); NRBC Flagged by Analyzer 0 % (0-5); Neutrophil # 2.75 X10^3/uL (2.7-7.7); Neutrophil % 64.4 % (47-70); Platelet Count 200 K/mm3 (150-450); RBC Distribution Width CV 14.6 % (11.6-14.6); RBC Distribution Width SD 47.6 fl (35.1-43.9); Red Blood Count 4.59 M/mm3 (4.6-6.2); White Blood Count 4.3 K/mm3 (4.4-11.0)
[2021-01-19 15:34] LABS: Vitamin D,25 Hydroxy 62.8 ng/mL
[2021-01-19 15:39] LABS: AST(SGOT) 27 U/L (15-37); Alanine Aminotransfer ALT/SGPT 49 U/L (16-61); Albumin, Serum 3.2 g/dL (3.2-5.0); Alkaline Phosphatase 63 U/L (45-117); Anion Gap 5 (5-15); BUN 16 mg/dL (7-18); BUN/Creat Ratio 13.7 RATIO (10-20); Calcium,Total 8.4 mg/dL (8.5-10.1); Chloride 110 mmol/L (98-107); Creatinine, Serum 1.17 mg/dL (0.70-1.30); EST Glomerular Filtration Rate 65 mL/min (>60); Est Glom Filt Rate - Afr Amer 79 mL/min (>60); Globulin 3.1 g/dL (2.2-4.2); Glucose 96 mg/dL (74-106); Potassium 3.9 mmol/L (3.5-5.1); Protein, Total 6.3 g/dL (6.4-8.2); Sodium Level 141 mmol/L (136-145); Thyroid Stim Hormone (TSH) 2.69 uIU/mL (0.358-3.74)
== END ==
PROVIDERS: PCP Family Medicine Geriatric Medicine; Referring Provider Family Medicine Geriatric Medicine; Visit Provider Family Medicine Geriatric Medicine
DX: E23.6 Other disorders of pituitary gland (principal); E55.9 Vitamin D deficiency, unspecified; I10 Essential (primary) hypertension
CPT/HCPCS: 36415; 80053; 82306; 84403; 84443; 85025

== ENCOUNTER → 2021-02-23 14:06 | Outpatient (CLI) | payer MEDICARE, OTHER, SELFPAY ==
[2021-02-23 15:22] LABS: PSA,Total - Annual Screen 2.77 ng/mL (0.00-4.00)
== END ==
PROVIDERS: PCP Family Medicine Geriatric Medicine; Referring Provider Urology; Visit Provider Urology
DX: Z12.5 Encounter for screening for malignant neoplasm of prostate (principal)
CPT/HCPCS: 36415; 84153; G0103

== ENCOUNTER 2021-07-19 13:46 | Outpatient (CLI) | payer MEDICARE, OTHER, SELFPAY ==
[2021-07-19 17:10] LABS: Absolute Lymphocyte Count 1.08 X10^3/uL (0.83-4.51); Absolute Neutrophil Count 3.2 X10^3/uL (2.0-7.7); Basophil# 0.03 X10^3/uL; Basophil% 0.6 % (0-1); Eosinophil# 0.06 X10^3/uL; Eosinophils% 1.2 % (0-5); Hematocrit 42.9 % (40-54); Lymphocyte # 1.08 X10^3/ul (0.83-4.51); Lymphocyte % 22.2 % (19-41); Mean Corpuscular Hgb 31.1 pg (27.0-32.0); Mean Platelet Vol. 9.8 fl (6.2-12.0); Monocyte# 0.52 X10^3/uL; Monocyte% 10.7 % (0-10); NRBC Flagged by Analyzer 0 % (0-5); Neutrophil # 3.17 X10^3/uL (2.7-7.7); Neutrophil % 65.1 % (47-70); Platelet Count 214 K/mm3 (150-450); RBC Distribution Width CV 14.4 % (11.6-14.6); RBC Distribution Width SD 46.7 fl (35.1-43.9); Red Blood Count 4.82 M/mm3 (4.6-6.2); White Blood Count 4.9 K/mm3 (4.4-11.0)
[2021-07-19 18:12] LABS: Anion Gap 6 (5-15); BUN 22 mg/dL (7-18); BUN/Creat Ratio 17.1 RATIO (10-20); Calcium,Total 8.5 mg/dL (8.5-10.1); Chloride 108 mmol/L (98-107); Creatinine, Serum 1.29 mg/dL (0.70-1.30); EST Glomerular Filtration Rate 58 mL/min (>60); Est Glom Filt Rate - Afr Amer 70 mL/min (>60); Glucose 98 mg/dL (74-106); Sodium Level 141 mmol/L (136-145); Thyroid Stim Hormone (TSH) 1.74 uIU/mL (0.358-3.74)
[2021-07-24 11:07] LABS: Free Lambda Light Chains 13.1 mg/L (5.7-26.3)
== END 2021-07-19 23:59 | disposition home or self-care (01) ==
LOC: MTLAB 16:33 → LAB 16:35
PROVIDERS: Physician Assistant Medical; PCP Family Medicine Geriatric Medicine; Referring Provider Nurse Practitioner Family; Visit Provider Nurse Practitioner Family
DX: R00.2 Palpitations (principal); R53.83 Other fatigue; R06.02 Shortness of breath; I49.3 Ventricular premature depolarization
CPT/HCPCS: 36415; 80048; 83883; 84443; 85025; 86335

== ENCOUNTER 2021-07-20 12:57 | Outpatient (CLI) | payer MEDICARE, OTHER, SELFPAY | END 2021-07-20 23:59 | disposition home or self-care (01) | LOC: POLAB3 13:01 | PROVIDERS: PCP Family Medicine Geriatric Medicine; Visit Provider Family Medicine Geriatric Medicine | DX: E23.6 Other disorders of pituitary gland (principal); E55.9 Vitamin D deficiency, unspecified; I10 Essential (primary) hypertension ==

== ENCOUNTER 2021-07-27 15:25 | Outpatient (CLI) | payer MEDICARE, OTHER, SELFPAY ==
[2021-07-27 17:25] LABS: Absolute Lymphocyte Count 0.92 X10^3/uL (0.83-4.51); Absolute Neutrophil Count 3.2 X10^3/uL (2.0-7.7); Basophil# 0.04 X10^3/uL; Basophil% 0.9 % (0-1); Eosinophil# 0.07 X10^3/uL; Eosinophils% 1.5 % (0-5); Hematocrit 41.5 % (40-54); Hemoglobin 14.5 g/dL (13.0-16.5); Lymphocyte # 0.92 X10^3/ul (0.83-4.51); Lymphocyte % 19.7 % (19-41); Mean Corp Hgb Conc 34.9 g/dL (32-36); Mean Corpuscular Hgb 30.3 pg (27.0-32.0); Mean Corpuscular Volume 86.8 fL (80-94); Mean Platelet Vol. 9.6 fl (6.2-12.0); Monocyte# 0.45 X10^3/uL; Monocyte% 9.6 % (0-10); NRBC Flagged by Analyzer 0 % (0-5); Neutrophil % 68.3 % (47-70); Platelet Count 250 K/mm3 (150-450); RBC Distribution Width CV 14.3 % (11.6-14.6); RBC Distribution Width SD 45.4 fl (35.1-43.9); Red Blood Count 4.78 M/mm3 (4.6-6.2); White Blood Count 4.7 K/mm3 (4.4-11.0)
[2021-07-27 17:36] LABS: Vitamin D,25 Hydroxy 65.7 ng/mL
[2021-07-27 17:43] LABS: ALB/GLOB Ratio 1.4 RATIO (0.9-2.4); AST(SGOT) 25 U/L (15-37); Alanine Aminotransfer ALT/SGPT 17 U/L (16-61); Albumin, Serum 3.8 g/dL (3.2-5.0); Alkaline Phosphatase 53 U/L (45-117); Anion Gap 2 (5-15); BUN 19 mg/dL (7-18); BUN/Creat Ratio 14.2 RATIO (10-20); Chloride 110 mmol/L (98-107); Creatinine, Serum 1.34 mg/dL (0.70-1.30); EST Glomerular Filtration Rate 56 mL/min (>60); Est Glom Filt Rate - Afr Amer 67 mL/min (>60); Globulin 2.7 g/dL (2.2-4.2); Glucose 105 mg/dL (74-106); Protein, Total 6.5 g/dL (6.4-8.2); Sodium Level 140 mmol/L (136-145); Thyroid Stim Hormone (TSH) 1.73 uIU/mL (0.358-3.74)
== END 2021-07-27 23:59 | disposition home or self-care (01) ==
LOC: POLAB3 15:26
PROVIDERS: PCP Family Medicine Geriatric Medicine; Visit Provider Family Medicine Geriatric Medicine
DX: I10 Essential (primary) hypertension (principal); E23.6 Other disorders of pituitary gland; E55.9 Vitamin D deficiency, unspecified
CPT/HCPCS: 36415; 80053; 82306; 84403; 84443; 85025

== ENCOUNTER 2021-08-21 10:00 | Outpatient (RCR) | payer MEDICARE, OTHER, SELFPAY ==
--- NOTE | 2021-07-27 13:54 | HP.PTEVAL ---
Patient's Visit Information ABELINO MANCERA is a 71 year old M referred to Physical Therapy by PAPO Hu with a diagnosis of Parkinsons. Date of Evaluation: 07/27/21 Physical Therapist: Yaa Alvarado DPT - Visit Plan Frequency: 2x /Week Duration: 3 Weeks Plan: Balance Assessment. Focus on coordination, dual tasking- safety with uneven terrain - Subjective Patient reports that his doctor sent him here for Parkinson's. He had COVID in the fall but then he hasn't gotten his strength and endurance back. His left hand has started tremors. He was working out with a color strainer- and he tore his meniscus on the right side. It is not painful but effects his walking. People at work are worried about him dragging his feet. Work: [employer]- he is walking the rolon and doesn't use a walking stick. He slipped twice on mud yesterday and fell- did not hit his head or sustain any injury. He drives a lot and when he gets out of the car he has to stop and get himself righted. He has neuropathy on his feet- had a treatment and it went away- every now and then he has some but is controlled by using his [employer] Machine. Uses [place] tennis shoes when walking and new balance when he is at work- is unable to wear work boots due to the weight. No falls due to Parkinson's. Diagnosed in 2013. Works out 2-4 hours a day. 25 min of stretching, balance activities, weights, walking and riding a bike outside- acupuncture every 2 weeks. Balance: BOSU- different small items, balance beams- eyes open and eyes closed. PMHx/Meds: see list - Objective Posture: good throughout treatment session. Gait: ataxic- decreased stance on the right LE- does not achieve full extension of the right knee. HR/TR: able without UE A. SLS: 30 sec each without loss of balance. Balance: see FGA- Tandem stance bilateral for 15 seconds each without loss of balance- 30 sec eyes closed narrow KELLIE mild sway. ROM: WFL in all planes in LE. Strength: 5/5 throughout LE and good core strength/stabilization. Flex: HS: moderate, Gastroc: moderate - Balance/Special Test Scores Functional Gait Assessment Score: 20 % Disability: 33.3400 Lower Extremity Functional Score: 59 - Goals Goal 1:: Patient will be I with HEP and progression Goal Time Frame: 4-6 Weeks Goal 2:: Patient will improve his FGA to WFL Goal Time Frame: 4-6 Weeks - Rehabilitation Potential Physical Therapy Diagnosis: Patient presents with hypomobility- he has decreased coordination leading to abnormal gait pattern and decreased safety with ADL's. Rehabilitation Potential: Fair - Anticipated Interventions Patient/Client Instruction: Educate patient on: Benefits of Fitness Program Therapeutic Exercise to Include: Strength training, Endurance training, Balance training, Coordination, Agility training, Body mechanics, Postural training, Flexibilty training, Gait and locomotor training, Neuromotor development, via [employer] Balance Mas, Dynamic Lumbar Stabilization For the Purpose of:: To improve muscle performance and motor function Thank you for the opportunity to evaluate your patient. For Medicare and Medicare HMO plans, please review the plan of care and approve it. It will need to be FAXED BACK to us at [phone] for Medicare purposes. For Medicare only, by signing this I certify the plan of care. Please let me know if there are questions or concerns regarding this plan of care. Physician Signature: Date:
--- NOTE | 2021-07-31 09:30 | HP.PTCOM ---
PT Communication Note 07/31/[address] Magnolia Peters, EXECUTIVE [employer] OF [employer]ETING[employer] , Thank you for the referral of Martínez to [facility] for balance assessment. I have enclosed a copy for your review. In summary, he was slow on the Limits of stability test particularly in backwards weight shift. He was slightly low on the vestibular portion of the Sensory Organization Test. With these results in mind, I plan to see him 2x/week for 3-4 weeks to work on exercises to address these concerns as well as general strength, dual tasking and BIG weight shifting execises. Exit strategy is to d/c to an HEP. Please let me know if there are questions regarding this plan. Thank you. Sincerely, Hieu Reeder DPT, OCS, CSCS Contact Information
--- NOTE | 2021-08-21 10:19 | HP.PTDCSUM ---
It has been my pleasure to treat ABELINO MANCERA referred by Magnolia Peters, PAPO, with the diagnosis of Parkinsons for a total of 8 visit(s). Discharge Date: 08/21/21 Please see the following information for a summary of their discharge status. Subjective: Working on exercises at home regularly. Feels like he is on the right track and getting better with his ex. Doing the ones he has been given regularly at home in the am. Has Bosu and uses it for balance. Ready to be done with PT and continue on his own. back to neuro in 3 months. No changes to carbodopa recently. % Improvement: 75 Objective/Function: Walks well with head turns. Much better FGA and feels confiudent with HEP. Ready for d/c. Goal 1:: Patient will be I with HEP and progression Goal Progress: Goal Met Goal 2:: Patient will improve his FGA to WFL Goal Progress: Goal Met Plan: d/c to HEP Discharge Comments: Will continue via HEP If there are questions or concerns regarding this patient's physical therapy, please feel free to call me at [phone]. Thank you for the referral of this patient. Sincerely, Hieu Reeder, DPT, OCS, CSCS Balance/Gait/Functional tests - Balance/Special Test Scores Functional Gait Assessment Score: 29 % Disability: 3.3400 Lower Extremity Functional Score: 61 Tug Test: <10 sec.=free mobile
== END 2021-08-21 12:18 | disposition home or self-care (01) ==
LOC: PT 10:00
PROVIDERS: PCP Family Medicine Geriatric Medicine; Referring Provider Nurse Practitioner Family; Visit Provider Nurse Practitioner Family
DX: G20 Parkinson's disease (principal)
CPT/HCPCS: 97110; 97162; 97164; 97750

== ENCOUNTER → 2021-10-18 | Outpatient (CLI) | payer MEDICARE, OTHER, SELFPAY ==
[2021-10-18 17:16] LABS: Albumin, Serum 3.7 g/dL (3.2-5.0); BUN 22 mg/dL (7-18); BUN/Creat Ratio 14.8 RATIO (10-20); Calcium,Total 8.8 mg/dL (8.5-10.1); Chloride 106 mmol/L (98-107); Creatinine, Serum 1.49 mg/dL (0.70-1.30); EST Glomerular Filtration Rate 49 mL/min (>60); Est Glom Filt Rate - Afr Amer 59 mL/min (>60); Glucose 93 mg/dL (74-106); Phosphorus 3.1 mg/dL (2.5-4.9); Potassium 4.3 mmol/L (3.5-5.1); Sodium Level 140 mmol/L (136-145)
== END | disposition home or self-care (01) ==
PROVIDERS: PCP Family Medicine Geriatric Medicine; Visit Provider Internal Medicine Nephrology
DX: N18.30 Chronic kidney disease, stage 3 unspecified (principal)
CPT/HCPCS: 36415; 80069

== ENCOUNTER → 2021-11-09 | Outpatient (CLI) | payer MEDICARE, OTHER, SELFPAY ==
--- NOTE | 2021-11-09 16:52 | US_ITS ---
INDICATION: CKD, STAGE 3A EXAMINATION: US Kidney(s) complete (eg, kidneys and bladder) TECHNIQUE: Ridley scale and color doppler images were obtained of the kidneys. COMPARISON: Unenhanced CT abdomen and pelvis from 12/09/2015. Renal ultrasound from 08/13/2014. FINDINGS: RIGHT KIDNEY: Right kidney measures 10.8 x 5.6 x 5.8 cm with cortical thickness of 1.9 cm. There is no hydronephrosis. A few hyperechoic foci within right kidney compatible with calcifications/stones, largest measuring 1.7 cm. Small anechoic 1.5 cm cyst at lower pole of right kidney. LEFT KIDNEY: Left kidney measures 10.7 x 4.1 x 4.6 cm with cortical thickness of 1.6 cm. There is no hydronephrosis. A few hyperechoic foci within left kidney compatible with calcifications/stones, largest measuring 1.3 cm. There are few anechoic left renal cysts, largest is exophytic at left lower pole measuring 2 x 1.5 x 1.7 cm. URINARY BLADDER: No urinary bladder intraluminal filling defects or significant wall thickening demonstrated. Urinary bladder volume 89 mL with minimal post void residual of 5 mL. Nonvisualized ureteral jets. US/Kidney and Bladder IMPRESSION: Normal size kidneys with nonobstructing renal calculi and simple appearing renal cysts. Electronically Signed: Luis Madsen MD at 6:21 EDT ,
== END | disposition home or self-care (01) ==
LOC: US 16:50
PROVIDERS: PCP Family Medicine Geriatric Medicine; Visit Provider Internal Medicine Nephrology
DX: N18.31 Chronic kidney disease, stage 3a (principal); N20.0 Calculus of kidney; N28.1 Cyst of kidney, acquired
CPT/HCPCS: 76770

== ENCOUNTER → 2021-11-22 | Outpatient (CLI) | payer MEDICARE, OTHER, SELFPAY ==
[2021-11-22 16:16] LABS: Albumin, Serum 3.5 g/dL (3.2-5.0); BUN 24 mg/dL (7-18); BUN/Creat Ratio 16.9 RATIO (10-20); Calcium,Total 8.9 mg/dL (8.5-10.1); Chloride 111 mmol/L (98-107); Creatinine, Serum 1.42 mg/dL (0.70-1.30); EST Glomerular Filtration Rate 52 mL/min (>60); Est Glom Filt Rate - Afr Amer 63 mL/min (>60); Glucose 94 mg/dL (74-106); Potassium 4.5 mmol/L (3.5-5.1); Sodium Level 141 mmol/L (136-145)
== END | disposition home or self-care (01) ==
LOC: POLAB3 15:36
PROVIDERS: PCP Family Medicine Geriatric Medicine; Visit Provider Internal Medicine Nephrology
DX: N18.31 Chronic kidney disease, stage 3a (principal)
CPT/HCPCS: 36415; 80069

== ENCOUNTER → 2022-02-01 | Outpatient (CLI) | payer MEDICARE, OTHER, SELFPAY ==
[2022-02-01 11:58] LABS: Absolute Lymphocyte Count 0.67 X10^3/uL (0.83-4.51); Basophil# 0.04 X10^3/uL; Basophil% 0.6 % (0-1); Eosinophil# 0.06 X10^3/uL; Eosinophils% 0.9 % (0-5); Hematocrit 42.9 % (40-54); Hemoglobin 14.6 g/dL (13.0-16.5); Lymphocyte # 0.67 X10^3/ul (0.83-4.51); Lymphocyte % 10.4 % (19-41); Mean Corpuscular Hgb 31.4 pg (27.0-32.0); Mean Corpuscular Volume 92.3 fL (80-94); Mean Platelet Vol. 9.9 fl (6.2-12.0); Monocyte% 10.8 % (0-10); NRBC Flagged by Analyzer 0 % (0-5); Neutrophil # 4.99 X10^3/uL (2.7-7.7); Neutrophil % 77.1 % (47-70); Platelet Count 238 K/mm3 (150-450); RBC Distribution Width CV 13.6 % (11.6-14.6); Red Blood Count 4.65 M/mm3 (4.6-6.2); White Blood Count 6.5 K/mm3 (4.4-11.0)
[2022-02-01 12:17] LABS: Vitamin D,25 Hydroxy 49.1 ng/mL
[2022-02-01 12:25] LABS: ALB/GLOB Ratio 1.2 RATIO (0.9-2.4); AST(SGOT) 24 U/L (15-37); Alanine Aminotransfer ALT/SGPT 27 U/L (16-61); Albumin, Serum 3.8 g/dL (3.2-5.0); Alkaline Phosphatase 55 U/L (45-117); Anion Gap 5 (5-15); BUN 18 mg/dL (7-18); BUN/Creat Ratio 13.3 RATIO (10-20); Calcium,Total 9.1 mg/dL (8.5-10.1); Chloride 109 mmol/L (98-107); Creatinine, Serum 1.35 mg/dL (0.70-1.30); EST Glomerular Filtration Rate 55 mL/min (>60); Est Glom Filt Rate - Afr Amer 67 mL/min (>60); Globulin 3.1 g/dL (2.2-4.2); Glucose 76 mg/dL (74-106); Potassium 4.4 mmol/L (3.5-5.1); Protein, Total 6.9 g/dL (6.4-8.2); Sodium Level 142 mmol/L (136-145); Thyroid Stim Hormone (TSH) 1.59 uIU/mL (0.358-3.74)
== END | disposition home or self-care (01) ==
LOC: POLAB3 09:17
PROVIDERS: PCP Family Medicine Geriatric Medicine; Visit Provider Family Medicine Geriatric Medicine
DX: I10 Essential (primary) hypertension (principal); E55.9 Vitamin D deficiency, unspecified
CPT/HCPCS: 36415; 80053; 82306; 84443; 85025

== ENCOUNTER → 2022-03-22 | Outpatient (CLI) | payer MEDICARE, OTHER, SELFPAY ==
[2022-03-22 12:14] LABS: PSA,Total - Annual Screen 3.29 ng/mL (0.00-4.00)
== END | disposition home or self-care (01) ==
LOC: LAB 10:40
PROVIDERS: PCP Family Medicine Geriatric Medicine; Visit Provider Registered Nurse
DX: Z12.5 Encounter for screening for malignant neoplasm of prostate (principal)
CPT/HCPCS: 36415; 84153; G0103

== ENCOUNTER → 2022-05-30 | Outpatient (CLI) | payer MEDICARE, OTHER, SELFPAY ==
[2022-05-30 15:41] LABS: Albumin, Serum 3.5 g/dL (3.2-5.0); BUN 19 mg/dL (7-18); BUN/Creat Ratio 15.6 RATIO (10-20); Calcium,Total 8.7 mg/dL (8.5-10.1); Chloride 109 mmol/L (98-107); Creatinine, Serum 1.22 mg/dL (0.70-1.30); EST Glomerular Filtration Rate 62 mL/min (>60); Est Glom Filt Rate - Afr Amer 75 mL/min (>60); Glucose 94 mg/dL (74-106); Phosphorus 3.3 mg/dL (2.5-4.9); Potassium 4.2 mmol/L (3.5-5.1); Sodium Level 139 mmol/L (136-145)
== END | disposition home or self-care (01) ==
LOC: LAB.FUTURE 13:28 → POLAB3 13:36
PROVIDERS: PCP Family Medicine Geriatric Medicine; Visit Provider Internal Medicine Nephrology
DX: N18.31 Chronic kidney disease, stage 3a (principal)
CPT/HCPCS: 36415; 80069

== ENCOUNTER → 2022-05-30 | Outpatient (CLI) | payer MEDICARE, OTHER, SELFPAY | END | disposition home or self-care (01) | LOC: LAB.FUTURE 13:29 → POLAB3 13:33 | PROVIDERS: PCP Family Medicine Geriatric Medicine; Visit Provider Internal Medicine Nephrology | DX: N18.31 Chronic kidney disease, stage 3a (principal) ==

== ENCOUNTER → 2022-08-02 | Outpatient (CLI) | payer MEDICARE, OTHER, SELFPAY ==
[2022-08-02 12:36] LABS: Absolute Lymphocyte Count 0.88 X10^3/uL (0.83-4.51); Absolute Neutrophil Count 2.9 X10^3/uL (2.0-7.7); Basophil# 0.05 X10^3/uL; Basophil% 1.1 % (0-1); Eosinophil# 0.06 X10^3/uL; Eosinophils% 1.4 % (0-5); Hematocrit 42.6 % (40-54); Lymphocyte # 0.88 X10^3/ul (0.83-4.51); Mean Corp Hgb Conc 32.9 g/dL (32-36); Mean Corpuscular Hgb 29.4 pg (27.0-32.0); Mean Corpuscular Volume 89.5 fL (80-94); Mean Platelet Vol. 9.5 fl (6.2-12.0); Monocyte# 0.46 X10^3/uL; Monocyte% 10.5 % (0-10); NRBC Flagged by Analyzer 0 % (0-5); Neutrophil # 2.93 X10^3/uL (2.7-7.7); Neutrophil % 66.8 % (47-70); Platelet Count 279 K/mm3 (150-450); RBC Distribution Width CV 13.6 % (11.6-14.6); RBC Distribution Width SD 44.3 fl (35.1-43.9); Red Blood Count 4.76 M/mm3 (4.6-6.2); White Blood Count 4.4 K/mm3 (4.4-11.0)
[2022-08-02 13:05] LABS: Vitamin D,25 Hydroxy 56.3 ng/mL
[2022-08-02 13:39] LABS: ALB/GLOB Ratio 1.5 RATIO (0.9-2.4); AST(SGOT) 33 U/L (15-37); Alanine Aminotransfer ALT/SGPT 28 U/L (16-61); Albumin, Serum 3.8 g/dL (3.2-5.0); Alkaline Phosphatase 50 U/L (45-117); Anion Gap 8 (5-15); BUN 20 mg/dL (7-18); BUN/Creat Ratio 14.1 RATIO (10-20); Calcium,Total 8.7 mg/dL (8.5-10.1); Chloride 107 mmol/L (98-107); Creatinine, Serum 1.42 mg/dL (0.70-1.30); EST Glomerular Filtration Rate 52 mL/min (>60); Est Glom Filt Rate - Afr Amer 63 mL/min (>60); Globulin 2.6 g/dL (2.2-4.2); Glucose 70 mg/dL (74-106); Potassium 4.1 mmol/L (3.5-5.1); Protein, Total 6.4 g/dL (6.4-8.2); Sodium Level 141 mmol/L (136-145); Thyroid Stim Hormone (TSH) 1.61 uIU/mL (0.358-3.74)
== END | disposition home or self-care (01) ==
LOC: MFPLAB 10:10 → POLAB3 10:10
PROVIDERS: PCP Family Medicine Geriatric Medicine; Visit Provider Family Medicine Geriatric Medicine
DX: I10 Essential (primary) hypertension (principal); E55.9 Vitamin D deficiency, unspecified
CPT/HCPCS: 36415; 80053; 82306; 84443; 85025

== ENCOUNTER → 2023-01-24 | Outpatient (CLI) | payer MEDICARE, OTHER, SELFPAY ==
[2023-01-24 11:26] LABS: Hematocrit 40.4 % (40-54); Hemoglobin 13.5 g/dL (13.0-16.5); Mean Corp Hgb Conc 33.4 g/dL (32-36); Mean Corpuscular Hgb 31.3 pg (27.0-32.0); Mean Corpuscular Volume 93.7 fL (80-94); Mean Platelet Vol. 9.7 fl (6.2-12.0); Platelet Count 236 K/mm3 (150-450); RBC Distribution Width CV 13.3 % (11.6-14.6); Red Blood Count 4.31 M/mm3 (4.6-6.2); White Blood Count 4.6 K/mm3 (4.4-11.0)
[2023-01-24 11:37] LABS: Albumin, Serum 3.6 g/dL (3.2-5.0); BUN 17 mg/dL (7-18); BUN/Creat Ratio 13.6 RATIO (10-20); Calcium,Total 8.6 mg/dL (8.5-10.1); Chloride 110 mmol/L (98-107); Creatinine, Serum 1.25 mg/dL (0.70-1.30); EST Glomerular Filtration Rate 60 mL/min (>60); Est Glom Filt Rate - Afr Amer 73 mL/min (>60); Glucose 91 mg/dL (74-106); Phosphorus 2.4 mg/dL (2.5-4.9); Potassium 4.2 mmol/L (3.5-5.1); Sodium Level 139 mmol/L (136-145)
== END | disposition home or self-care (01) ==
LOC: POLAB3 09:43
PROVIDERS: PCP Family Medicine Geriatric Medicine; Visit Provider Internal Medicine Nephrology
DX: N18.31 Chronic kidney disease, stage 3a (principal)
CPT/HCPCS: 36415; 80069; 85027

== ENCOUNTER → 2023-02-07 | Outpatient (CLI) | payer MEDICARE, OTHER, SELFPAY ==
[2023-02-07 11:19] LABS: Absolute Lymphocyte Count 0.82 X10^3/uL (0.83-4.51); Absolute Neutrophil Count 3.9 X10^3/uL (2.0-7.7); Basophil# 0.03 X10^3/uL; Basophil% 0.6 % (0-1); Eosinophil# 0.02 X10^3/uL; Eosinophils% 0.4 % (0-5); Hematocrit 43.8 % (40-54); Hemoglobin 14.9 g/dL (13.0-16.5); Lymphocyte # 0.82 X10^3/ul (0.83-4.51); Lymphocyte % 15.5 % (19-41); Mean Corpuscular Hgb 31.1 pg (27.0-32.0); Mean Corpuscular Volume 91.4 fL (80-94); Mean Platelet Vol. 9.3 fl (6.2-12.0); Monocyte# 0.47 X10^3/uL; Monocyte% 8.9 % (0-10); NRBC Flagged by Analyzer 0 % (0-5); Neutrophil # 3.93 X10^3/uL (2.7-7.7); Neutrophil % 74.4 % (47-70); Platelet Count 237 K/mm3 (150-450); RBC Distribution Width CV 13.2 % (11.6-14.6); RBC Distribution Width SD 45.1 fl (35.1-43.9); Red Blood Count 4.79 M/mm3 (4.6-6.2); White Blood Count 5.3 K/mm3 (4.4-11.0)
[2023-02-07 11:54] LABS: Vitamin D,25 Hydroxy 56.9 ng/mL
[2023-02-07 12:10] LABS: ALB/GLOB Ratio 1.3 RATIO (0.9-2.4); AST(SGOT) 31 U/L (15-37); Alanine Aminotransfer ALT/SGPT 35 U/L (16-61); Alkaline Phosphatase 56 U/L (45-117); Anion Gap 4 (5-15); BUN 16 mg/dL (7-18); BUN/Creat Ratio 12.9 RATIO (10-20); Calcium,Total 8.6 mg/dL (8.5-10.1); Chloride 110 mmol/L (98-107); Creatinine, Serum 1.24 mg/dL (0.70-1.30); EST Glomerular Filtration Rate 61 mL/min (>60); Est Glom Filt Rate - Afr Amer 73 mL/min (>60); Glucose 92 mg/dL (74-106); Potassium 4.2 mmol/L (3.5-5.1); Sodium Level 140 mmol/L (136-145); Thyroid Stim Hormone (TSH) 1.88 uIU/mL (0.358-3.74)
== END | disposition home or self-care (01) ==
LOC: LAB 10:25
PROVIDERS: PCP Family Medicine Geriatric Medicine; Referring Provider Family Medicine Geriatric Medicine; Visit Provider Family Medicine Geriatric Medicine
DX: I10 Essential (primary) hypertension (principal); E55.9 Vitamin D deficiency, unspecified
CPT/HCPCS: 36415; 80053; 82306; 84443; 85025

== ENCOUNTER → 2023-06-19 | Outpatient (CLI) | payer MEDICARE, OTHER, SELFPAY ==
[2023-06-19 12:53] LABS: Absolute Lymphocyte Count 0.94 X10^3/uL (0.83-4.51); Absolute Neutrophil Count 4.2 X10^3/uL (2.0-7.7); Basophil# 0.03 X10^3/uL; Basophil% 0.5 % (0-1); Eosinophil# 0.06 X10^3/uL; Eosinophils% 1.1 % (0-5); Hematocrit 42.7 % (40-54); Hemoglobin 14.6 g/dL (13.0-16.5); Lymphocyte # 0.94 X10^3/ul (0.83-4.51); Lymphocyte % 16.5 % (19-41); Mean Corp Hgb Conc 34.2 g/dL (32-36); Mean Corpuscular Hgb 30.4 pg (27.0-32.0); Mean Corpuscular Volume 88.8 fL (80-94); Mean Platelet Vol. 8.8 fl (6.2-12.0); Monocyte# 0.51 X10^3/uL; NRBC Flagged by Analyzer 0 % (0-5); Neutrophil # 4.15 X10^3/uL (2.7-7.7); Neutrophil % 72.9 % (47-70); Platelet Count 244 K/mm3 (150-450); RBC Distribution Width CV 14.3 % (11.6-14.6); RBC Distribution Width SD 46.1 fl (35.1-43.9); Red Blood Count 4.81 M/mm3 (4.6-6.2); White Blood Count 5.7 K/mm3 (4.4-11.0)
--- NOTE | 2023-06-19 12:55 | RAD_ITS ---
STUDY: X-RAY CHEST REASON FOR EXAM: Male, 72 years old. SHORTNESS OF BREATH TECHNIQUE: PA and lateral views of the chest. COMPARISON: None. FINDINGS: The lungs are clear and expanded. There is no demonstrated pleural abnormality. Normal size heart. Normal mediastinum and georgi. Normal visualized pulmonary arteries. There is atherosclerotic calcification of the aortic arch with tortuosity. There are diffuse degenerative changes of the visualized thoracic spine. Normal visualized ribs, clavicles, and shoulders. There is no demonstrated abnormality of the visualized soft tissue structures of the upper abdomen. RAD/Chest PA and Lateral IMPRESSION: No acute cardiopulmonary disease. Electronically Signed: Farheen Chavez MD at 0:39 EST ,
[2023-06-19 13:04] LABS: D-Dimer Quantitative (DVT/PE) 0.31 FEU/ug/m (0.27-0.49)
[2023-06-19 13:22] LABS: BNP,B-Type NATRIURETIC PEPTIDE 33.8 pg/mL (0-100)
[2023-06-19 13:37] LABS: ALB/GLOB Ratio 1.3 RATIO (0.9-2.4); AST(SGOT) 25 U/L (15-37); Alanine Aminotransfer ALT/SGPT 23 U/L (16-61); Albumin, Serum 3.9 g/dL (3.2-5.0); Alkaline Phosphatase 60 U/L (45-117); Anion Gap 1 (5-15); BUN 19 mg/dL (7-18); BUN/Creat Ratio 14.1 RATIO (10-20); CPK Total, Creatine Kinase 151 U/L (39-308); Chloride 109 mmol/L (98-107); Creatinine, Serum 1.35 mg/dL (0.70-1.30); EST Glomerular Filtration Rate 55 mL/min (>60); Est Glom Filt Rate - Afr Amer 66 mL/min (>60); Glucose 93 mg/dL (74-106); Protein, Total 6.9 g/dL (6.4-8.2); Sodium Level 137 mmol/L (136-145); Thyroid Stim Hormone (TSH) 1.92 uIU/mL (0.358-3.74); Troponin-I HS 9 pg/mL (3.0-78.0)
[2023-06-21 04:07] LABS: Myoglobin, Serum 106 ng/mL (28-72)
== END | disposition home or self-care (01) ==
PROVIDERS: PCP Family Medicine Geriatric Medicine; Referring Provider Family Medicine Geriatric Medicine; Visit Provider Family Medicine Geriatric Medicine
DX: R06.02 Shortness of breath (principal); N18.31 Chronic kidney disease, stage 3a; I12.9 Hypertensive chronic kidney disease with stage 1 through stage 4 chronic kidney disease, or unspecified chronic kidney disease; G20.A1 Parkinson's disease without dyskinesia, without mention of fluctuations; N39.0 Urinary tract infection, site not specified
CPT/HCPCS: 36415; 71046; 80053; 82550; 83874; 83880; 84443; 84484; 85025; 85379; 87086

== ENCOUNTER → 2023-06-20 | Outpatient (CLI) | payer MEDICARE, OTHER, SELFPAY ==
--- OUTSIDE RECORDS SUMMARY | 2023-06-20 08:19 | XMS RPT_ITS | CCD ---
Author Name Unknown Address [address] [place] [address] Organization [facility] Care Team Providers [facility] Attendant Name Role Phone Marcus Yeboah MD Unavailable DarwinJaquelin palacios DO Primary Care Provider [phone] Boo Diaz Chi Primary Care Provider Pcp HR SHARED SERVICES CONSULTANT, No Primary Care Provider Unavailabl e LLOYD JUNIOR Unavailable LLOYD JUNIOR Unavailable [phone] BOO DIAZ MD Consulting Unavailable CARITO ELMORE Attending Unavailable CARITO ELMORE Primary Care Unavailable CARITO ELMORE Admitting Unavailable PROVIDER, UNKNOWN Consulting Unavailable PROVIDER, UNKNOWN Consulting Unavailable Allergies Allergy Classification Reported Allergen(s) Allergy Type Date of Onset Reaction(s) Facility (1 source) Penicillin Drug Allergy 08-27-2018 vomiting [facility] Work Phone: (1 source) Penicillins Drug Allergy 04-09-2012 GI [facility] (2 sources) Penicillins (Antibiotic) [facility] [place] [facility] (1 source) Penicillin Drug Allergy [facility] Repository Medications Completed/Discontinued Medications Medication Drug Class(es) Dates Sig (Normalized) Sig (Original) 12 hr buPROPion hydrochloride 150 mg extended release oral tablet (1 source) Aminoketone Start: 08-27-2018 BUPROPION HCL ER (SR) 150 MG [id number] 1 tablet daily BUPROPION HCL [id number] Nona Fermin LPN carbidopa 50 mg / levodopa 200 mg extended release oral tablet (1 source) Aromatic Amino Acid Decarboxylation Inhibitor, Aromatic Amino Acid Start: 08-27-2018 SINEMET CR 50-200 MG CR-TABS 1 tablet 3 times daily CARBIDOPA-LEVODOP A [id number] Nona Fermin LPN CUSTOM MULTIVITAMIN PACKET (1 source) Start: 08-27-2018 CUSTOM MULTIVITAMIN PACKET 1 packet twice daily CUSTOM MULTIVITAMIN PACKET Nona Fermin LPN metoprolol tartrate 25 mg oral tablet (1 source) beta-Adrenergic Florian Start: 08-27-2018 METOPROLOL TARTRATE 25 MG TABS 1 tablet twice daily METOPROLOL TARTRATE [id number] Nona Fermin LPN 24 hr oxybutynin chloride 10 mg extended release oral tablet (1 source) Cholinergic Muscarinic Antagonist Start: 08-27-2018 OXYBUTYNIN CHLORIDE ER 10 MG [id number] 1 tablet daily OXYBUTYNIN CHLORIDE [id number] Nona Fermin LPN potassium citrate 10 meq extended release oral tablet (1 source) Start: 08-27-2018 POTASSIUM CITRATE ER 10 MEQ (1080 MG) CR-TABS 2 tablets daily POTASSIUM CITRATE [id number] Nona Fermin LPN rOPINIRole 0.25 mg oral tablet (1 source) Nonergot Dopamine Agonist Start: 08-27-2018 ROPINIROLE HCL 0.25 MG TABS 1 tablet 3 times daily ROPINIROLE HCL [id number] Nona Fermin LPN tamsulosin hydrochloride 0.4 mg oral capsule (1 source) alpha-Adrenergic Florian Start: 08-27-2018 TAMSULOSIN HCL 0.4 MG CAPS 1 capsule daily TAMSULOSIN HCL [id number] Nona Fermin LPN Problems Active Problems Problem Classification Problem Date Documented Date Episodic/Chronic Anxiety disorders (1 source) Anxiety; Translations: [Anxiety disorder, unspecified] Onset: 04-10-2012 04-10-2012 Chronic Essential hypertension (1 source) Essential hypertension; Translations: [Essential (primary) hypertension] Onset: 04-10-2012 04-10-2012 Chronic Hyperplasia of prostate (1 source) Benign prostatic hypertrophy with outflow obstruction; Translations: [Benign prostatic hyperplasia with lower urinary tract symptoms] Onset: 04-10-2012 04-10-2012 Chronic Spondylosis; intervertebral disc disorders; other back problems (1 source) Degeneration of intervertebral disc; Translations: [Degenerative disk disease] Onset: 04-10-2012 04-10-2012 Chronic Past or Other Problems Problem Classification Problem Date Documented Date Episodic/Chronic Calculus of urinary tract (1 source) Kidney stone; Translations: [Calculus of kidney] Onset: 04-10-2012 04-10-2012 Episodic Genitourinary symptoms and ill-defined conditions (1 source) Urgent desire to urinate; Translations: [Urgency of urination] Onset: 04-10-2012 04-10-2012 Episodic Inflammatory conditions of male genital organs (1 source) Prostatitis; Translations: [Inflammatory disease of prostate, unspecified] Onset: 04-10-2012 04-10-2012 Episodic Joint disorders and dislocations; trauma-related (1 source) Acute meniscal tear, medial; Translations: [Other tear of medial meniscus, current injury, right knee, initial encounter] Onset: 09-02-2018 09-02-2018 Episodic Other injuries and conditions due to external causes (1 source) Hamstring injury; Translations: [Other specified enthesopathies of right lower limb, excluding foot] Onset: 02-03-2019 02-03-2019 Episodic Other screening for suspected conditions (not mental disorders or infectious disease) (1 source) Patient encounter status; Translations: [Encounter for screening for malignant neoplasm of prostate] Onset: 04-10-2012 04-10-2012 Episodic Residual codes; unclassified (1 source) History of operative procedure on knee; Translations: [Other specified postprocedural states] Onset: 09-16-2018 09-16-2018 Episodic Spondylosis; intervertebral disc disorders; other back problems (1 source) Backache; Translations: [Dorsalgia, unspecified] Onset: 04-10-2012 04-10-2012 Episodic Unclassified (1 source) Problem NEGATED: Highlighted row has been ruled out!Unclassified (2 sources) No Problem Information Available Results Test Name Value Interpretation Reference Range Facil ity Vital Signs Date Time Vital Sign Value Performing Clinician Facility NEGATED: Highlighted [id number] 14:140400 BMI (Body Mass Index) 27.01 kg/m2 Natacha Nael LEGAL RECORDS MANAGER [facility] Work Phone: NEGATED: Highlighted [id number] 14:14-0400 Body weight 80.29 kg Natacha Nael LEGAL RECORDS MANAGER [facility] Work Phone: NEGATED: Highlighted [id number] 14:14-0400 Body weight 80 kg Natacha Nael LEGAL RECORDS MANAGER [facility] Work Phone: NEGATED: Highlighted [id number] 14:14-0400 BP Diastolic 85 mm[Hg] Natacha Nael LEGAL RECORDS MANAGER [facility] Work Phone: NEGATED: Highlighted [id number] 14:14-0400 BP Systolic 131 mm[Hg] Natacha Nael LEGAL RECORDS MANAGER [facility] Work Phone: NEGATED: Highlighted [id number] 14:14-0400 Heart rate 2+ Natacha Nael LEGAL RECORDS MANAGER [facility] Work Phone: NEGATED: Highlighted [id number] 14:14-0400 Height 172.72 cm Natacha Nael LEGAL RECORDS MANAGER [facility] Work Phone: NEGATED: Highlighted [id number] 14:14-0400 Height 173 cm Natacha Nael LEGAL RECORDS MANAGER [facility] Work Phone: NEGATED: Highlighted [id number] 14:14-0400 Pulse (Heart Rate) 58 /min Natacha Nael LEGAL RECORDS MANAGER [facility] Work Phone: Encounters Encounter Date Encounter Type Care Provider Facility Start: 05-24-2023 ambulatory BOO CAAL [facility] Start: 02-03-2019 End: 02-03-2019 Patient encounter procedure Marcus Yeboah MD Work Phone: [facility] Work Phone: Start: 02-03-2019 End: 02-03-2019 Pt evaluation Marcus Yeboah MD Work Phone: [facility] Work Phone: Start: 09-24-2011 End: 09-24-2011 Historical Summary LLOYD [employer] Work Phone: [facility]. Start: 12-04-2010 Documentation procedure Marcus Payan MD Work Phone: [facility] Start: 12-04-2010 Historic EMR Marcus morales MD Work Phone: [facility] Procedures Date Procedure Procedure Detail Performing Clinician Start: 02-03-2019 End: 02-03-2019 Blood pressure within normal parameters - no follow-up required Marcus Yeboah MD Work Phone: Start: 02-03-2019 End: 02-03-2019 BMI documented as above normal parameters - follow-up documented Marcus Yeboah MD Work Phone: Start: 02-03-2019 End: 02-03-2019 Documentation of current medications Marcus Yeboah MD Work Phone: Start: 02-03-2019 End: 02-03-2019 Pain assessment documented as positive - follow-up documented Marcus Yeboah MD Work Phone: Start: 02-03-2019 End: 02-03-2019 Tobacco non-user Marcus Yeboah MD Work Phone: Start: 12-01-2010 SURGICAL PATHOLOGY, CONVERTED Marcus Payan MD Work Phone: NEGATED: Highlighted rowStart: 02-03-2019 End: 02-03-2019 Documentation of current medications Natacha Nayak LPN Plan of Treatment Date Care Activity Detail Author Start: 01-11-2023 Influenza vaccination Influenza Vaccine (#1) [facility] Start: 05-13-2022 Advance Directive Discussion Advance Directive Discussion [facility] Start: 05-13-2022 Depression Assessment Depression Assessment [facility] Start: 02-03-2019 End: 02-03-2019 Appointment Appointment [facility] Work Phone: Start: 04-10-2015 Diabetes Screening Diabetes Screening [facility] Start: 2013 Pneumococcal Vaccine: 65+ (1 - PCV) Pneumococcal Vaccine: 65+ (1 - PCV) [facility] Start: 1998 Shingrix Vaccine (1 of 2) Shingrix Vaccine (1 of 2) [facility] Start: 1993 Cologuard (FIT-DNA) Cologuard (FIT-DNA) [facility] Start: 1993 Colonoscopy Colonoscopy [facility] Start: 1993 Colorectal Cancer Screening Colorectal Cancer Screening [facility] Start: [address] COLONOGRAPHY [facility] Start: 1993 Fecal Occult Blood Fecal Occult Blood [facility] Start: 1993 SIGMOIDOSCOPY SIGMOIDOSCOPY [facility] Start: 1983 Lipid 1996 panel - Serum or Plasma Lipid Screening [facility] Start: 1967 Urine microalbumin profile DTaP,Tdap,Td Vaccine (1 - Tdap) [facility] Start: 1948 Covid-19 Vaccine (#1) Covid-19 Vaccine (#1) [facility] Start: 1948 Abdominal Aortic Aneurysm Screening Abdominal Aortic Aneurysm Screening [facility] Payers Date Payer Category Payer Unknown [facility] [id number] 2001-[address] [place] [address] Indemnity [id number] 1950 Unknown [id number] Medicare [id number] Unknown [id number] Social History Date Type Detail Facility Start: 02-03-2019 End: 02-03-2019 Assertion Unknown if ever smoked [facility] Work Phone: Start: 1950 Sex Assigned At Not on file [facility] Gender identity Not on file [facility] inic Male Rikki May [facility] [employer] [place] [employer]ki [employer]. Work Phone: NEGATED: Highlighted rowStart: 02-03-2019 End: 02-03-2019 Employment detail Employment detail [facility] Work Phone: NEGATED: Highlighted row No Social History Information Available No Social History Information Available [employer] Work Phone: Chief Complaint Chief Complaint Description Start Date right knee pain Preliminary chief co mplaint data, not yet signed by the author as of Instructions Instruction Description Start Date Patient advised to follow-up with Primary Care Physician for BMI management. Advance Directives There may be information available, but it has not been provided by the sender. No Advanced Directives Records Found Assessments There may be information available, but it has not been provided by the sender. Review of System There may be information available, but it has not been provided by the sender. Family History There may be information available, but it has not been provided by the sender.No Family History Records Found History of Present Illness There may be information available, but it has not been provided by the sender. Summary Purpose Additional Source Comments Reason for Visit (unrecogniz ed section and content) Source Comments (unrecognize d section and content) In the event this informatio n is protected by the Federal Confidentiality of Alcohol and Drug Abuse Patient Records regulations: The Federal rules restrict any use of the information to criminally investigate or prosecute any alcohol or drug abuse patient.[facility] Care Teams (unrecognized sec tion and content) (unrecognized sect ion and content) No Status Records Found INFORMATION SOURCE (unrecogn ized section and content) FOR RECORDS PERTAINING TO PATIENTS WHO ARE OR HAVE BEEN ENROLLED IN A CHEMICAL DEPENDENCY/SUBSTANCEABUSE PROGRAM, SOME INFORMATION MAY BE OMITTED. This clinical summary was aggregated from multiple sources. Caution should be exercised in using it in the provision of clinical care. This summary normalizes information from multiple sources, and as a consequence, information in this document may materially change the coding, format and clinical context of patient data. In addition, data may be omitted in some cases. CLINICAL DECISIONS SHOULD BE BASED ON THE PRIMARY CLINICAL RECORDS. [facility]. provides no warranty or guarantee of the accuracy or completeness of information in this document.
== END | disposition home or self-care (01) ==
PROVIDERS: PCP Family Medicine Geriatric Medicine; Referring Provider Family Medicine Geriatric Medicine; Visit Provider Family Medicine Geriatric Medicine
DX: R68.83 Chills (without fever) (principal)
CPT/HCPCS: 87631

== ENCOUNTER → 2023-07-11 | Outpatient (CLI) | payer MEDICARE, OTHER, SELFPAY ==
[2023-07-11 16:49] LABS: Anion Gap 3 (5-15); BUN 18 mg/dL (7-18); BUN/Creat Ratio 14.2 RATIO (10-20); Calcium,Total 8.8 mg/dL (8.5-10.1); Chloride 109 mmol/L (98-107); Creatinine, Serum 1.27 mg/dL (0.70-1.30); EST Glomerular Filtration Rate 59 mL/min (>60); Est Glom Filt Rate - Afr Amer 71 mL/min (>60); Glucose 91 mg/dL (74-106); Potassium 4.1 mmol/L (3.5-5.1); Sodium Level 139 mmol/L (136-145)
== END | disposition home or self-care (01) ==
LOC: POLAB3 15:36
PROVIDERS: PCP Family Medicine Geriatric Medicine; Visit Provider Family Medicine Geriatric Medicine
DX: R53.83 Other fatigue (principal)
CPT/HCPCS: 36415; 80048

== ENCOUNTER → 2023-07-22 | Outpatient (CLI) | payer MEDICARE, OTHER, SELFPAY ==
--- OUTSIDE RECORDS SUMMARY | 2023-07-22 19:18 | XMS RPT_ITS | CCD ---
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, No Primary Care Provider Unavailabl e GEGE MORIN-LLOYD Alegre Unavailable GEGE MORIN-LLOYD Alegre Unavailable RAY DIAZ MD Consulting Unavailable RAY DIAZ MD Referring Unavailable JULIET CALIX DO Admitting Unavailable JULIET CALIX DO Primary Care Unavailable JULIET CALIX DO Attending Unavailable PROVIDER, UNKNOWN Consulting Unavailable PROVIDER, UNKNOWN Consulting Unavailable CARITO ELMORE Admitting Unavailable CARITO ELMORE Primary Care Unavailable CARITO ELMORE Attending Unavailable RAY DIAZ MD Consulting Unavailable PROVIDER, UNKNOWN Consulting Unavailable PROVIDER, UNKNOWN Consulting Unavailable Allergies Allergy Classification Reported Allergen(s) Allergy Type Date of Onset Reaction(s) Facility (1 source) Penicillin Drug Allergy 08-27-2018 vomiting [facility] Work Phone: (1 source) Penicillins Drug Allergy 04-09-2012 GI Upset [facility] (2 sources) Penicillins (Antibiotic) [facility] [employer] [facility] [place] [facility] (1 source) Penicillin Drug Allergy [facility] Repository Medications Completed/Discontinued Medications Medication Drug Class(es) Dates Sig (Normalized) Sig (Original) 12 hr buPROPion hydrochloride 150 mg extended release oral tablet (1 source) Aminoketone Start: 08-27-2018 BUPROPION HCL ER (SR) 150 MG [id number] 1 tablet daily BUPROPION HCL [id number] Nona Fermin LPN carbidopa 50 mg / levodopa 200 mg extended release oral tablet (1 source) Aromatic Amino Acid Decarboxylation Inhibitor, Aromatic Amino Acid Start: 08-27-2018 SINEMET CR 50-200 MG CR-TABS 1 tablet 3 times daily CARBIDOPA-LEVODOP A [id number] Nona Fermin LPN CUSTOM MULTIVITAMIN PACKET (1 source) Start: 08-27-2018 CUSTOM MULTIVITAMIN PACKET 1 packet twice daily CUSTOM MULTIVITAMIN PACKET Nona Fermin LPN metoprolol tartrate 25 mg oral tablet (1 source) beta-Adrenergic Florian Start: 08-27-2018 METOPROLOL TARTRATE 25 MG TABS 1 tablet twice daily METOPROLOL TARTRATE [id number] Nona Fermin LPN 24 hr oxybutynin chloride 10 mg extended release oral tablet (1 source) Cholinergic Muscarinic Antagonist Start: 08-27-2018 OXYBUTYNIN CHLORIDE ER 10 MG [id number] 1 tablet daily OXYBUTYNIN CHLORIDE [id number] Nona Fermin LPN potassium citrate 10 meq extended release oral tablet (1 source) Start: 08-27-2018 POTASSIUM CITRATE ER 10 MEQ (1080 MG) CR-TABS 2 tablets daily POTASSIUM CITRATE [id number] Nona Fermin LPN rOPINIRole 0.25 mg oral tablet (1 source) Nonergot Dopamine Agonist Start: 08-27-2018 ROPINIROLE HCL 0.25 MG TABS 1 tablet 3 times daily ROPINIROLE HCL [id number] Nona Fermin LPN tamsulosin hydrochloride 0.4 mg oral capsule (1 source) alpha-Adrenergic Florian Start: 08-27-2018 TAMSULOSIN HCL 0.4 MG CAPS 1 capsule daily TAMSULOSIN HCL [id number] Nona Fermin LPN Problems Active Problems Problem [...] urinary tract symptoms] Onset: 04-10-2012 04-10-2012 Chronic Osteoarthritis (3 sources) Unilateral primary osteoarthritis, right knee; Translations: [Unilateral primary osteoarthritis, right knee] Onset: 05-24-2023 Chronic Spondylosis; intervertebral disc disorders; other back [...] Sign Value Performing Clinician Facility NEGATED: Highlighted [id number] 14:14-0400 BMI (Body Mass Index) 27.01 kg/m2 Natacha Nael INDUSTRIAL DESIGNER [facility] Work Phone: NEGATED: Highlighted [id number] 14:14-0400 Body weight 80.29 kg Natacha Nael INDUSTRIAL DESIGNER [facility] Work Phone: NEGATED: Highlighted [id number] 14:14-0400 Body weight 80 kg Natacha Nael INDUSTRIAL DESIGNER [facility] Work Phone: NEGATED: Highlighted [id number] 14:14-0400 BP Diastolic 85 mm[Hg] Natacha Nael INDUSTRIAL DESIGNER [facility] Work Phone: NEGATED: Highlighted [id number] 14:14-0400 BP Systolic 131 mm[Hg] Natacha Nael INDUSTRIAL DESIGNER [facility] Work Phone: NEGATED: Highlighted [id number] 14:14-0400 Heart rate 2+ Natacha Nael INDUSTRIAL DESIGNER [facility] Work Phone: NEGATED: Highlighted [id number] 14:14-0400 Height 172.72 cm Natacha Nael INDUSTRIAL DESIGNER [facility] Work Phone: NEGATED: Highlighted [id number] 14:14-0400 Height 173 cm Natacha Nael INDUSTRIAL DESIGNER [facility] Work Phone: NEGATED: Highlighted [id number] 14:14-0400 Pulse (Heart Rate) 58 /min Natacha Nael INDUSTRIAL DESIGNER [facility] Work Phone: Encounters Encounter Date Encounter Type Care Provider Facility Start: 07-18-2023 End: 07-18-2023 Emergency department patient visit RAY DIAZ [facility] Start: 05-24-2023 [facility] Start: 02-03-2019 End: 02-03-2019 Patient encounter procedure Marcus Yeboah MD Work Phone: [facility] Work Phone: Start: 02-03-2019 End: 02-03-2019 Pt evaluation Marcus Yeboah MD Work Phone: [facility] Work Phone: Start: 09-24-2011 End: 09-24-2011 Historical Summary LLOYD DE GUZMAN HARDNESS TESTER-C Work Phone: [facility] Start: 12-04-2010 Documentation procedure Marcus Payan MD Work Phone: [facility] Start: 12-04-2010 Historic EMR Marcus morales MD Work Phone: [facility] HOD Procedures Date Procedure Procedure Detail Performing [...] Start: 01-11-2023 Influenza [facility] Start: 05-13-2022 Advance Directive Discussion Advance Directive Discussion [facility] Start: 05-13-2022 Depression Assessment Depression Assessment [facility] Start: 02-03-2019 End: 02-03-2019 Appointment Appointment [facility] Work Phone: Start: 04-10-2015 Diabetes Screening Diabetes Screening [facility] Start: 2013 Pneumococcal Vaccine: 65+ (1 - PCV) Pneumococcal Vaccine: 65+ (1 - PCV) [facility] Start: 1998 Shingrix Vaccine (1 of 2) Shingrix Vaccine (1 of 2) [facility] Start: 1993 Cologuard (FIT-DNA) Cologuard (FIT-DNA) [facility] Start: 1993 Colonoscopy Colonoscopy [facility] Start: 1993 Colorectal Cancer Screening Colorectal Cancer Screening [facility] Start: [address] COLONOGRAPHY [facility] Start: 1993 Fecal Occult Blood Fecal Occult Blood [facility] Start: 1993 SIGMOIDOSCOPY SIGMOIDOSCOPY [facility] Start: 1983 Lipid 1996 panel - Serum or Plasma Lipid Screening [facility] Start: 1967 Urine microalbumin profile DTaP,Tdap,Td Vaccine (1 - Tdap) [facility] Start: 1948 Covid-19 Vaccine (#1) Covid-19 Vaccine (#1) [facility] Start: 1948 Abdominal Aortic Aneurysm Screening Abdominal Aortic Aneurysm Screening [facility] Payers Date Payer Category Payer Unknown [facility] [id number] 2001-[address] [place] [address] Indemnity [id number] 1950 Unknown [id number] 1950 Unknown [id number] Medicare [id number] Unknown [id number] Social History Date Type Detail Facility Start: 02-03-2019 End: 02-03-2019 Assertion Unknown if ever smoked [facility] Work Phone: Start: 1950 Sex Assigned At Not on file [facility] Gender identity Not on file [facility] Male [employer] [facility] [employer] Passports; [employer] Work Phone: NEGATED: Highlighted rowStart: 02-03-2019 End: 02-03-2019 Employment detail Employment detail [facility] Work Phone: NEGATED: Highlighted row No Social History Information Available No Social History Information Available [employer]; [employer] Work Phone: Clinical Note 07-18-2023 Note Date & Type Note Facility 07-18-2023 Note . MICRO - Microbiology PROCEDURE: Blood Culture (bacterial) [*1] SOURCE: Blood BODY SITE: COLLECTED DATE/TIME: 07/18/2023 09:36 EST RECEIVED DATE/TIME: 07/18/2023 14:23 EST START DATE/TIME: 07/18/2023 14:24 EST FREE TEXT SOURCE: PRELIMINARY REPORTS Preliminary Report [] Verified Date/Time/Personnel: 07/18/2023 14:59 EST Culture has been received in lab and is no growth to date. Routine cultures are held for 5 days. Performing Locations *1: This test was performed at: [facility], [address] [place] [address], [facility] ([place]) Clinical Note 07-18-2023 Note Date & Type Note Facility 07-18-2023 Note . MICRO - Microbiology PROCEDURE: Blood Culture (bacterial) [*1] SOURCE: Blood BODY SITE: COLLECTED DATE/TIME: 07/18/2023 09:34 EST RECEIVED DATE/TIME: 07/18/2023 14:21 EST START DATE/TIME: 07/18/2023 14:22 EST FREE TEXT SOURCE: PRELIMINARY REPORTS Preliminary Report [] Verified Date/Time/Personnel: 07/18/2023 14:59 EST Culture has been received in lab and is no growth to date. Routine cultures are held for 5 days. Performing Locations *1: This test was performed at: [facility], [address] [place] [address], [facility] ([place]) Chief Complaint Chief Complaint Description Start Date right knee pain Preliminary chief co mplaint data, not yet signed by the author as of Instructions Instruction Description Start Date Patient advised to follow-up with Primary Care Physician for BMI management. Advance Directives There may be information available, but it has not been provided by the sender. No Advanced Directives Records FoundNo Advanced Directives Records Found Assessments There may be information available, but it has not been provided by the sender. Review of System There may be information available, but it has not been provided by the sender. Family History There may be information available, but it has not been provided by the sender.No Family History Records FoundNo Family History Records Found History of Present [...] or prosecute any alcohol or drug abuse patient.[facility] Care Teams (unrecognized sec tion and content) (unrecognized sect ion and content) No Status Records FoundNo Status Records Found INFORMATION SOURCE (unrecogn ized section and content) DATE CREATED AUTHOR AUTHOR'S TYSHAWNROBEL HONORIOION 07/19/[address] [facility] FOR RECORDS PERTAINING TO PATIENTS WHO ARE [...] BE BASED ON THE PRIMARY CLINICAL RECORDS. [employer] [facility] provides no warranty or guarantee of the accuracy or completeness of information in this document.
[2023-07-27 00:07] LABS: Lyme IgG P18 Ab Absent (.); Lyme IgG P23 Ab Absent (.); Lyme IgG P28 Ab Absent (.); Lyme IgG P30 Ab Absent (.); Lyme IgG P39 Ab Absent (.); Lyme IgG P41 Ab Absent (.); Lyme IgG P45 Ab Absent (.); Lyme IgG P58 Ab Absent (.); Lyme IgG P66 Ab Absent (.); Lyme IgG P93 Ab Absent (.); Lyme IgG WB Interpretation Negative (.); Lyme IgM P23 Ab Absent (.); Lyme IgM P39 Ab Absent (.); Lyme IgM P41 Ab Absent (.); Lyme IgM WB Interpretation Negative (.)
== END | disposition home or self-care (01) ==
LOC: LAB 13:32
PROVIDERS: PCP Family Medicine Geriatric Medicine; Visit Provider Family Medicine Geriatric Medicine
DX: T07.XXXA Unspecified multiple injuries, initial encounter (principal); X58.XXXA Exposure to other specified factors, initial encounter
CPT/HCPCS: 36415; 86617

== ENCOUNTER → 2023-08-01 | Outpatient (CLI) | payer MEDICARE, OTHER, SELFPAY ==
[2023-08-01 11:16] LABS: Absolute Lymphocyte Count 0.71 X10^3/uL (0.83-4.51); Basophil# 0.03 X10^3/uL; Basophil% 0.6 % (0-1); Eosinophil# 0.03 X10^3/uL; Eosinophils% 0.6 % (0-5); Lymphocyte # 0.71 X10^3/ul (0.83-4.51); Lymphocyte % 13.7 % (19-41); Mean Corp Hgb Conc 34.9 g/dL (32-36); Mean Corpuscular Volume 91.7 fL (80-94); Mean Platelet Vol. 9.1 fl (6.2-12.0); Monocyte# 0.44 X10^3/uL; Monocyte% 8.5 % (0-10); NRBC Flagged by Analyzer 0 % (0-5); Neutrophil # 3.97 X10^3/uL (2.7-7.7); Neutrophil % 76.4 % (47-70); Platelet Count 250 K/mm3 (150-450); RBC Distribution Width CV 13.5 % (11.6-14.6); RBC Distribution Width SD 45.4 fl (35.1-43.9); Red Blood Count 4.69 M/mm3 (4.6-6.2); White Blood Count 5.2 K/mm3 (4.4-11.0)
[2023-08-01 11:31] LABS: Vitamin D,25 Hydroxy 58.3 ng/mL
[2023-08-01 11:38] LABS: ALB/GLOB Ratio 1.5 RATIO (0.9-2.4); AST(SGOT) 23 U/L (15-37); Alanine Aminotransfer ALT/SGPT 18 U/L (16-61); Albumin, Serum 3.8 g/dL (3.2-5.0); Alkaline Phosphatase 56 U/L (45-117); Anion Gap 6 (5-15); BUN 18 mg/dL (7-18); BUN/Creat Ratio 16.4 RATIO (10-20); Calcium,Total 8.6 mg/dL (8.5-10.1); Chloride 107 mmol/L (98-107); EST Glomerular Filtration Rate 69 mL/min (>60); Est Glom Filt Rate - Afr Amer 84 mL/min (>60); Globulin 2.5 g/dL (2.2-4.2); Glucose 95 mg/dL (74-106); Protein, Total 6.3 g/dL (6.4-8.2); Sodium Level 140 mmol/L (136-145)
== END | disposition home or self-care (01) ==
LOC: POLAB3 10:15
PROVIDERS: PCP Family Medicine Geriatric Medicine; Visit Provider Family Medicine Geriatric Medicine
DX: I10 Essential (primary) hypertension (principal); E55.9 Vitamin D deficiency, unspecified
CPT/HCPCS: 36415; 80053; 82306; 84443; 85025

== ENCOUNTER → 2023-08-06 | Outpatient (CLI) | payer MEDICARE, OTHER, SELFPAY ==
--- NOTE | 2023-08-06 09:08 | NEURO_ITS ---
NCS and/or EMG Patient Report Ordering Doctor: Boo Diaz Chi DATE OF SERVICE: 08/06/23 Clinical Summary: 73 year old male with symptoms of numbness and tingling in the feet. He denies having any back pain or any sciatica-like symptoms. Nerve Conduction Studies Summary: All SNAP's were absent bilaterally. The peroneal motor conduction velocities were reduced bilaterally. The tibial motor conduction velocities were reduced bilaterally. Needle Examination Summary: Needle examination of select muscles of the bilateral lower extremities demonstrated increased insertional activity and spontaneous activity (positive sharp waves) in the right medial gastrocnemius muscle. There was a higher proportion of motor unit action potentials with increased amplitude and increased duration in the bilateral tibialis anterior and medial gastrocnemius m uscles bilaterally. Impression: There is electrodiagnostic evidence of the following - 1) Length-dependent, sensorimotor, peripheral polyneuropathy with predominantly axonal features There is no definite electrodiagnostic evidence of a right/left lumbosacral radiculopathy. Multi Select Codes Neurology Neurology Interp Codes: 62748-14 Musc test done w/n test comp (interp) (2) and 95390-61 Nrv cndj test 7-8 studies (interp)
== END | disposition home or self-care (01) ==
LOC: PSN 07:11
PROVIDERS: PCP Family Medicine Geriatric Medicine; Referring Provider Family Medicine Geriatric Medicine; Visit Provider Family Medicine Geriatric Medicine
DX: R29.898 Other symptoms and signs involving the musculoskeletal system (principal)
CPT/HCPCS: 95886; 95910

== ENCOUNTER → 2023-08-27 | Outpatient (CLI) | payer MEDICARE, OTHER, SELFPAY ==
--- NOTE | 2023-08-27 13:32 | ART_ITS ---
Reason For Study: PAOD Procedure A bilateral lower extremity continuous wave Doppler with analog waveform analysis and ankle brachial indexes. Left Segmental Pressures Left brachial= 115mmHg. Left posterior tibial artery = 160mmHg. Left dorsalis pedis artery = 131mmHg. Left digit = 110 mmHg. The left dorsalis pedis waveforms are triphasic. The left posterior tibial artery waveforms are triphasic. Right Segmental Pressures Right brachial= 121mmHg. Right posterior tibial artery = 157mmHg. Right dorsalis pedis artery = 137mmHg. Right digit = 103 mmHg. The right dorsalis pedis waveforms are triphasic. The right posterior tibial artery waveforms are triphasic. Indices The right ankle brachial index by the posterior tibial artery is 1.3. The right ankle brachial index by the dorsalis pedis is 1.13. The right digital-brachial index is .85. The left ankle brachial index by the posterior tibial artery is 1.32. The left ankle brachial index by the dorsalis pedis is 1.08. The left digital-brachial index is .91. VL/Ankle Brachial Index Interpretation Summary Right FORREST 1.3, normal. TBI and Doppler/PVR waveforms of the right leg normal at rest. Left FORREST 1.32, normal. TBI and Doppler/PVR waveforms of the left leg normal at rest. Ordering Physician: Boo Diaz Chi Performed By: Abdoulaye Green RVT and Student
== END | disposition home or self-care (01) ==
LOC: CVS 13:31
PROVIDERS: PCP Family Medicine Geriatric Medicine; Referring Provider Family Medicine Geriatric Medicine; Visit Provider Family Medicine Geriatric Medicine
DX: I77.9 Disorder of arteries and arterioles, unspecified (principal); I73.9 Peripheral vascular disease, unspecified
CPT/HCPCS: 93922

== ENCOUNTER → 2023-10-24 | Outpatient (CLI) | payer MEDICARE, OTHER, SELFPAY ==
[2023-10-24 10:28] LABS: PSA,Total - Annual Screen 2.85 ng/mL (0.00-4.00)
== END | disposition home or self-care (01) ==
PROVIDERS: PCP Family Medicine Geriatric Medicine; Referring Provider Urology; Visit Provider Urology
DX: Z12.5 Encounter for screening for malignant neoplasm of prostate (principal)
CPT/HCPCS: 36415; 84153; G0103

== ENCOUNTER → 2023-12-05 | Outpatient (CLI) | payer MEDICARE, OTHER, SELFPAY ==
[2023-12-05 12:51] LABS: Vitamin B12 445 pg/mL (211-911)
[2023-12-08 21:07] LABS: Free Kappa Light Chains 30.7 mg/L (3.3-19.4); Free Lambda Light Chains 12.8 mg/L (5.7-26.3); Vitamin B1, Thiamine 184.3 nmol/L (66.5-200.0)
== END | disposition home or self-care (01) ==
LOC: MTLAB 11:13
PROVIDERS: PCP Family Medicine Geriatric Medicine; Referring Provider Psychiatry & Neurology Neurology; Visit Provider Psychiatry & Neurology Neurology
DX: G62.9 Polyneuropathy, unspecified (principal)
CPT/HCPCS: 36415; 82607; 82746; 83883; 84425

== ENCOUNTER → 2024-02-14 | Outpatient (CLI) | payer MEDICARE, OTHER, SELFPAY ==
[2024-02-14 11:10] LABS: Absolute Neutrophil Count 4.1 X10^3/uL (2.0-7.7); Basophil# 0.04 X10^3/uL; Basophil% 0.7 % (0-1); Eosinophil# 0.07 X10^3/uL; Eosinophils% 1.3 % (0-5); Hematocrit 45.1 % (40-54); Hemoglobin 15.6 g/dL (13.0-16.5); Lymphocyte % 17.9 % (19-41); Mean Corp Hgb Conc 34.6 g/dL (32-36); Mean Corpuscular Hgb 31.9 pg (27.0-32.0); Mean Corpuscular Volume 92.2 fL (80-94); Mean Platelet Vol. 9.2 fl (6.2-12.0); Monocyte# 0.42 X10^3/uL; Monocyte% 7.5 % (0-10); NRBC Flagged by Analyzer 0 % (0-5); Neutrophil # 4.05 X10^3/uL (2.7-7.7); Neutrophil % 72.4 % (47-70); Platelet Count 235 K/mm3 (150-450); RBC Distribution Width SD 43.8 fl (35.1-43.9); Red Blood Count 4.89 M/mm3 (4.6-6.2); White Blood Count 5.6 K/mm3 (4.4-11.0)
[2024-02-14 11:36] LABS: Vitamin D,25 Hydroxy 51.6 ng/mL
[2024-02-14 11:42] LABS: ALB/GLOB Ratio 1.3 RATIO (0.9-2.4); AST(SGOT) 23 U/L (15-37); Alanine Aminotransfer ALT/SGPT 17 U/L (16-61); Albumin, Serum 3.7 g/dL (3.2-5.0); Alkaline Phosphatase 76 U/L (45-117); Anion Gap 3 (5-15); BUN 13 mg/dL (7-18); BUN/Creat Ratio 11.3 RATIO (10-20); Calcium,Total 8.7 mg/dL (8.5-10.1); Chloride 108 mmol/L (98-107); Creatinine, Serum 1.15 mg/dL (0.70-1.30); EST Glomerular Filtration Rate 66 mL/min (>60); Est Glom Filt Rate - Afr Amer 80 mL/min (>60); Globulin 2.9 g/dL (2.2-4.2); Glucose 76 mg/dL (74-106); Potassium 4.2 mmol/L (3.5-5.1); Protein, Total 6.6 g/dL (6.4-8.2); Sodium Level 139 mmol/L (136-145)
[2024-02-14 21:51] LABS: Phosphorus 2.9 mg/dL (2.5-4.9)
== END | disposition home or self-care (01) ==
LOC: POLAB3 10:31
PROVIDERS: PCP Family Medicine Geriatric Medicine; Visit Provider Internal Medicine Nephrology
DX: I12.9 Hypertensive chronic kidney disease with stage 1 through stage 4 chronic kidney disease, or unspecified chronic kidney disease (principal); N18.31 Chronic kidney disease, stage 3a; E55.9 Vitamin D deficiency, unspecified
CPT/HCPCS: 36415; 80053; 82306; 84100; 84443; 85025

== ENCOUNTER → 2024-03-05 | Outpatient (CLI) | payer MEDICARE, OTHER, SELFPAY | END | disposition home or self-care (01) | PROVIDERS: PCP Family Medicine Geriatric Medicine; Referring Provider Physician Assistant; Visit Provider Physician Assistant | DX: R39.9 Unspecified symptoms and signs involving the genitourinary system (principal) | CPT/HCPCS: 87077; 87086; 87088 ==

== ENCOUNTER → 2024-05-28 | Outpatient (CLI) | payer MEDICARE, OTHER, SELFPAY ==
[2024-06-01 15:07] LABS: Alpha-1-Globulins 0.2 g/dL (0.0-0.4); Alpha-2-Globulins 0.4 g/dL (0.4-1.0); Gamma Globulin 0.9 g/dL (0.4-1.8); Immunoglobulin A 155 mg/dL (61-437); Immunoglobulin G 905 mg/dL (603-1613); Immunoglobulin M 64 mg/dL (15-143); PROEL- TOTAL PROTEIN 6.2 g/dL (6.0-8.5)
== END | disposition home or self-care (01) ==
LOC: MTLAB 09:27
PROVIDERS: PCP Family Medicine Geriatric Medicine; Referring Provider Psychiatry & Neurology Neurology; Visit Provider Psychiatry & Neurology Neurology
DX: G62.9 Polyneuropathy, unspecified (principal)

== ENCOUNTER 2024-06-08 08:48 | Emergency (ER) | payer MEDICARE, OTHER, SELFPAY ==
[2024-06-08 08:49] VITALS: BP 146/84; PULSE 68; RESP 18; TEMP 36.4; O2SAT 98
--- NOTE | 2024-06-08 09:30 | RAD_ITS ---
STUDY: X-RAY CHEST REASON FOR EXAM: Male, 73 years old. Weakness TECHNIQUE: Single AP portable view of the chest. COMPARISON: Comparison is made with prior study dated June 19, 2023. FINDINGS: EKG electrodes are seen. Hyperinflation. The lungs are clear. There is no demonstrated pleural abnormality. Normal size heart. Normal mediastinum and georgi. Normal visualized pulmonary arteries. There is atherosclerotic tortuosity of the aortic arch and descending thoracic aorta. There are diffuse degenerative changes of the visualized thoracic spine. Normal visualized ribs, clavicles, and shoulders. There is no demonstrated abnormality of the visualized soft tissue structures of the upper abdomen. RAD/Chest 1 View (Portable) IMPRESSION: Hyperinflation. The lungs are clear. Electronically Signed: Lazaro Rudd MD at 10:33 EST ,
--- NOTE | 2024-06-08 09:31 | EKG12_ITS ---
Test Reason : WEAKNESS Blood Pressure : */* mmHG Vent. Rate : 65 BPM Atrial Rate : 65 BPM P-R Int : 274 ms QRS Dur : 88 ms QT Int : 412 ms P-R-T Axes : -15 -18 -5 degrees QTcB Int : 428 ms Sinus rhythm with 1st degree A-V block Otherwise normal ECG Confirmed by CARMEN CAAL, GRACE ([id number]), photograph editor FRANCIS TAI ([id number]) on 06/10/2024 6:18:01 AM Referred By: Confirmed By: GRACE MORALES MD
--- NOTE | 2024-06-08 09:34 | EDS_ITS ---
HPI History of Present Illness Chief Complaint: Weakness Narrative Narrative: 73-year-old male with Parkinson's and some neuropathy following with neurology Dr. Chowdary states he has been feeling weaker than usual for the past 1-2 weeks. He thinks it started around the same time that he was starting 2 new pills, a new pill to boost my carbidopa-levodopa and duloxetine for anxiety. The states after taking these 2 pills for about 2 days, he was feeling poorly so she stopped the 1 pill and he continued taking the duloxetine, arguing that he has been on that medication before and it treated him fine. He denies any other new symptoms. States he is drinking fluids, perhaps not enough, he does not think it is a major change, and he is urinating, he went twice today and it is not too dark. He is still able to stand and walk, but he is weak and states I seem to have lost my zip. He denies any focal neurologic symptoms. The states he has had fatigue for maybe a year. [facility] Medical History Chronic fatigue, unspecified Anxiety OAB (overactive bladder) Hypogonadism Hyperlipidemia History of nephrolithotomy with removal of calculi History of skin cancer Rheumatoid arthritis History of kidney stones Arthritis Non-rheumatic mitral regurgitation Nonrheumatic aortic (valve) insufficiency Parkinsons disease Sinus bradycardia Essential hypertension Diastolic dysfunction Premature atrial contractions Premature ventricular contractions Home Medications ?Medication ?Instructions ?Recorded ?Last Taken ?Type tamsulosin 0.4 mg capsule 0.4 mg PO DAILY 05/12/14 Unknown History metoprolol tartrate 25 mg tablet 25 mg PO BID #180 tabs 10/24/23 Unknown Rx duloxetine 30 mg capsule,delayed 30 mg PO DAILY #7 caps 03/05/24 Unknown Rx release carbidopa ER 50 mg-levodopa 200 mg 1 tab PO .QID #360 tabs 05/28/24 Unknown Rx tablet,extended release duloxetine 30 mg capsule,delayed 30 mg PO DAILY #7 caps 05/28/24 Unknown Rx release duloxetine 60 mg capsule,delayed 60 mg PO DAILY #90 caps 05/28/24 Unknown Rx release entacapone 200 mg tablet 200 mg PO TID #90 tabs 05/28/24 Unknown Rx ropinirole 2 mg tablet 2 mg PO TID #270 tabs 05/28/24 Unknown Rx nitrofurantoin 100 mg PO Q12 #10 CAPSULES 06/08/24 Unknown Rx monohydrate/macrocrystals 100 mg capsule Allergy/AdvReac Type Severity Reaction Status Date / Time Penicillins (PCN) AdvReac Severe Vomiting Verified 06/08/24 08:49 Family History Father Cancer Lung cancer Mother Hypertension Surgical History History of right cataract surgery History of left cataract surgery History of hernia repair Amputation finger Social History Smoking Status: Former smoker alcohol intake: current alcohol intake frequency: holidays/special occasions only substance use type: does not use diet: gluten free caffeine: Yes Type: coffee Number of servings: 1 what type of physical activity do you participate in: walking, bicycling and weight training frequency: daily duration: > 90 minutes/day seatbelt use: always do you feel safe at home: Yes ROS ROS ED Constitutional Constitutional ED: Reports anorexia, weakness and weight loss; Denies chills or fever(s) Eyes Eyes: Denies change in vision or diplopia ENT ENT ED: Denies rhinorrhea or sore throat Cardiovascular Cardiovascular: Denies chest pain, leg edema, lightheadedness, palpitations or syncope Respiratory/Chest Respiratory/Chest: Denies cough or dyspnea Gastrointestinal Gastrointestinal: Denies abdominal pain, diarrhea, nausea or vomiting Genitourinary Genitourinary ED: Denies dysuria or hematuria Musculoskeletal Musculoskeletal: Denies back pain or neck pain Integumentary Denies abscess or rash Neurologic Neurologic: Reports tremor(s); Denies headache(s), paresthesias or weakness Psychiatric Psychiatric: Reports anxiety; Denies suicidal thoughts EXAM Physical Exam Const Vital Signs: 06/08/24 08:49 06/08/24 09:48 06/08/24 09:51 Temperature 97.5 F L 98.0 F Temperature Source Temporal Temporal Pulse Rate 68 62 Respiratory Rate 18 14 Respiratory Pattern Normal Blood Pressure 146/84 H 167/99 H Blood Pressure Mean 104 121 Pulse Ox 98 97 Oxygen Delivery Method Room Air Room Air 06/08/24 10:06/08/24 11:00 Temperature Temperature Source Pulse Rate 62 63 Respiratory Rate 17 Respiratory Pattern Blood Pressure 186/84 H 178/90 H Blood Pressure Mean 118 119 Pulse Ox 97 97 Oxygen Delivery Method Positive well nourished and well developed General Appearance ED: well developed and NAD HEENT Reports moist mucous membranes normocephalic and atraumatic Eyes PERRL and EOMs intact bilaterally Neck full ROM and supple Resp normal respiratory effort and clear to auscultation bilaterally Cardio regular rate, regular rhythm and no murmurs GI non-tender and non-distended Auscultation: normoactive bowel sounds Palpation: soft Back/Spine no CVA tenderness General Back: other FROM Extremity normal to inspection General Extremety ED: Negative for edema, pulses abnormal or tenderness General Extremity: Negative for edema or pulses abnormal Neuro oriented x3, CN's II-XII intact bilaterally and no sensory deficits noted Sensorium / Orientation: awake and alert Motor Exam: general weakness Psych Mood & Affect: anxious Skin no rashes or lesions noted and no wounds MDM MDM MDM Narrative Medical decision making narrative: Also possibilities including metabolic, anemic, sepsis/infection, cardiopulmon gordon etiologies such as myocardial infarction, so workup obtained and is largely normal except his urine. Chest x-ray 1 view of my interpretation negative for pneumonia radiology in agreement. The urine shows indicators for infection but no bacteria, and very few white blood cells although it is 5-10 and that is more than normal. Is possible this is the source, it is also possible that his fatig ue and weakness is related to his Parkinson's or just anxiety. I am going to treat his urine with a 5-day course of Macrobid and send a culture and have him follow-up. I advise calling his neurologist to discuss the potential side effects of the medication that he recently started, but the does not know which it is right now. Lab Data Attestation: I reviewed the patient's lab results. Labs: Laboratory Results - last 24 hr 06/08/24 06/08/24 06/08/24 09:33 09:44 09:45 WBC 4.3 L RBC 4.86 Hgb 15.6 Hct 43.5 MCV 89.5 MCH 32.1 H MCHC 35.9 RDW Std Deviation 41.3 RDW Coeff of Pao 12.7 Plt Count 215 MPV 9.0 Immature Gran % (Auto) 0.200 Neut % (Auto) 73.8 H Lymph % (Auto) 15.2 L [place] % (Auto) 9.4 Eos % (Auto) 0.7 Baso % (Auto) 0.7 Absolute Neuts (auto) 3.2 Absolute Lymphs (auto) 0.66 L Nucleated RBC % 0 Sodium 139 Potassium 3.9 Chloride 109 H Carbon Dioxide 25.0 Anion Gap 5 BUN 16 Creatinine 1.15 Estim Creat Clear Calc 55.71 Est GFR (MDRD) Af Amer 80 Est GFR (MDRD) Non-Af 66 BUN/Creatinine Ratio 13.9 Glucose 95 Lactic Acid 1.0 Calcium 8.9 Total Bilirubin 1.00 AST 15 ALT 8 L Alkaline Phosphatase 57 Troponin I High Sens 8 Total Protein 6.3 L Albumin 3.7 Globulin 2.6 Albumin/Globulin Ratio 1.4 Urine Color Yellow Urine Clarity Clear Urine pH 7.0 Ur Specific [place] 1.005 Urine Protein Negative Urine Glucose (UA) Normal Urine Ketones Negative Urine Occult Blood 10 H Urine Nitrite Negative Urine Bilirubin Negative Urine Urobilinogen Normal Ur Leukocyte Esterase 500 H Urine RBC 0-5 SEEN Urine WBC 5-10 SEEN Ur Squamous Epith Cells 0 SEEN Urine Bacteria 0 SEEN Urine Mucus 0 SEEN Radiography Diagnostic Testing: Clinical Impression(s) from Imaging Studies Chest X-Ray 06/08/24 09:30 IMPRESSION: Hyperinflation. The lungs are clear. Electronically Signed: Lazaro Rudd MD at 10:33 EST Reading Location ID and State: [facility] / [place] , Service support , Rhythm Strip Rhythm Strip: Sinus Rhythm Rate: 65 Ectopy: None EKG Initial EKG: Attestation: I personally reviewed and interpreted this EKG as follows: Interpretation: Sinus Rhythm, No Acute Injury Pattern and AV Block (First- degree) Comments: nml axis & intervals except NC 274; otherwise nml EKG Discharge Plan Triage Chief Complaint: Weakness ED Provider: Benjamin Montgomery Dx/Rx/DC Orders Clinical Impression: Generalized weakness, Parkinsons disease Instructions: ED Weakness (Uncertain Cause) Prescriptions: New nitrofurantoin monohyd/m-cryst 100 mg capsule 100 mg PO Q12 Qty: 10 0RF No Action metoprolol tartrate 25 mg tablet 25 mg PO BID Qty: 180 3RF entacapone 200 mg tablet 200 mg PO TID Qty: 90 5RF Rx Instructions: administer at the same time as l-dopa/carbidopa dose duloxetine 30 mg capsule,delayed release(DR/EC) 30 mg PO DAILY Qty: 7 0RF duloxetine 60 mg capsule,delayed release(DR/EC) 60 mg PO DAILY Qty: 90 1RF Rx Instructions: begin after completing one week course of duloxetine 30mg daily carbidopa-levodopa 50-200 mg tablet extended release 1 tab PO .QID Qty: 360 1RF ropinirole 2 mg tablet 2 mg PO TID Qty: 270 1RF tamsulosin 0.4 MG capsule 0.4 mg PO DAILY duloxetine 30 mg capsule,delayed release(DR/EC) 30 mg PO DAILY Qty: 7 0RF Primary Care Provider: Boo Diaz Chi Referrals: Boo Diaz Chi, MD [Primary Care Provider] - 3-5 Days Print Language: Colombian Disposition Disposition: Home, Self Care
[2024-06-08 09:48] VITALS: BP 167/99; PULSE 62; RESP 14; TEMP 36.7; O2SAT 97
[2024-06-08 09:48] LABS: Absolute Lymphocyte Count 0.66 X10^3/uL (0.83-4.51); Absolute Neutrophil Count 3.2 X10^3/uL (2.0-7.7); Basophil# 0.03 X10^3/uL; Basophil% 0.7 % (0-1); Eosinophil# 0.03 X10^3/uL; Eosinophils% 0.7 % (0-5); Hematocrit 43.5 % (40-54); Hemoglobin 15.6 g/dL (13.0-16.5); Lymphocyte # 0.66 X10^3/ul (0.83-4.51); Lymphocyte % 15.2 % (19-41); Mean Corp Hgb Conc 35.9 g/dL (32-36); Mean Corpuscular Hgb 32.1 pg (27.0-32.0); Mean Corpuscular Volume 89.5 fL (80-94); Monocyte# 0.41 X10^3/uL; Monocyte% 9.4 % (0-10); NRBC Flagged by Analyzer 0 % (0-5); Neutrophil % 73.8 % (47-70); Platelet Count 215 K/mm3 (150-450); RBC Distribution Width CV 12.7 % (11.6-14.6); RBC Distribution Width SD 41.3 fl (35.1-43.9); Red Blood Count 4.86 M/mm3 (4.6-6.2); White Blood Count 4.3 K/mm3 (4.4-11.0)
[2024-06-08] MEDS: 0.9% Normal Saline (500mL Bag) 500 ML 1000 ML IV (09:49)
[2024-06-08 09:50] VITALS: BMI 28.3
[2024-06-08 09:55] LABS: Bacteria 0 SEEN /hpf (None Seen); Mucous, Urine 0 SEEN /hpf (<or=2+); Squamous Epithelial Cells - UA 0 SEEN /hpf (0-5)
[2024-06-08 10:00] VITALS: BP 186/84; PULSE 62; RESP 17; O2SAT 97
[2024-06-08 10:03] LABS: Color, Urine Yellow (Yellow); Glucose, Dipstick Normal (Normal); Ketone-Dipstick Negative (Negative); Leukocyte Esterase-Dipstick 500 /ul (Negative); Nitrite-Dipstick Negative (Negative); Occult Blood-Urine 10 /ul (Negative); Protein-Dipstick Negative (Negative); Specific Gravity, Urine 1.005 (1.002-1.030); Urine Bilirubin Dipstick Negative (Negative); Urine Clarity Clear (Clear); Urine Urobilinogen Normal (Normal)
[2024-06-08 10:11] LABS: Red Blood Cells-Urine 0-5 SEEN /hpf (0-5); White Blood Cells 5-10 SEEN /hpf (0-5)
[2024-06-08 10:19] LABS: ALB/GLOB Ratio 1.4 RATIO (0.9-2.4); AST(SGOT) 15 U/L (15-37); Alanine Aminotransfer ALT/SGPT 8 U/L (16-61); Albumin, Serum 3.7 g/dL (3.2-5.0); Alkaline Phosphatase 57 U/L (45-117); Anion Gap 5 (5-15); BUN 16 mg/dL (7-18); BUN/Creat Ratio 13.9 RATIO (10-20); Calcium,Total 8.9 mg/dL (8.5-10.1); Chloride 109 mmol/L (98-107); Creatinine, Serum 1.15 mg/dL (0.70-1.30); EST Glomerular Filtration Rate 66 mL/min (>60); Est Glom Filt Rate - Afr Amer 80 mL/min (>60); Estimated Creatinine Clearance 55.71 ml/min; Globulin 2.6 g/dL (2.2-4.2); Glucose 95 mg/dL (74-106); Potassium 3.9 mmol/L (3.5-5.1); Protein, Total 6.3 g/dL (6.4-8.2); Sodium Level 139 mmol/L (136-145); Troponin-I HS 8 pg/mL (3.0-78.0)
[2024-06-08 11:00] VITALS: BP 178/90; PULSE 63; O2SAT 97
[2024-06-08 12:00] VITALS: BP 153/99; PULSE 67; RESP 19; O2SAT 93
[2024-06-08 12:29] VITALS: BP 153/99; PULSE 65; RESP 8; TEMP 525.5; TEMP 978; O2SAT 98
[2024-06-08] MEDS: Nitrofurantoin Macrocrystals 100 MG Capsule PO (12:32)
== END 2024-06-08 12:47 | disposition home or self-care (01) ==
PROVIDERS: Emergency Provider Emergency Medicine; PCP Family Medicine Geriatric Medicine; Visit Provider Emergency Medicine
DX: R53.1 Weakness (principal); G20.A1 Parkinson's disease without dyskinesia, without mention of fluctuations; Z87.891 Personal history of nicotine dependence
CPT/HCPCS: 71045; 80053; 81001; 83605; 84484; 85025; 87086; 87631; 93005; 96360; 96361; 99284; A4216

== ENCOUNTER → 2024-08-19 | Outpatient (CLI) | payer MEDICARE, OTHER, SELFPAY ==
[2024-08-19 16:50] LABS: Absolute Lymphocyte Count 0.91 X10^3/uL (0.83-4.51); Absolute Neutrophil Count 3.6 X10^3/uL (2.0-7.7); Basophil# 0.04 X10^3/uL; Basophil% 0.8 % (0-1); Eosinophil# 0.18 X10^3/uL; Eosinophils% 3.4 % (0-5); Hematocrit 38.2 % (40-54); Hemoglobin 13.6 g/dL (13.0-16.5); Lymphocyte # 0.91 X10^3/ul (0.83-4.51); Lymphocyte % 17.3 % (19-41); Mean Corp Hgb Conc 35.6 g/dL (32-36); Mean Corpuscular Hgb 32.7 pg (27.0-32.0); Mean Corpuscular Volume 91.8 fL (80-94); Mean Platelet Vol. 9.4 fl (6.2-12.0); Monocyte# 0.52 X10^3/uL; Monocyte% 9.9 % (0-10); NRBC Flagged by Analyzer 0 % (0-5); Neutrophil % 68.4 % (47-70); Platelet Count 231 K/mm3 (150-450); RBC Distribution Width SD 43.5 fl (35.1-43.9); Red Blood Count 4.16 M/mm3 (4.6-6.2); White Blood Count 5.3 K/mm3 (4.4-11.0)
[2024-08-19 17:33] LABS: ALB/GLOB Ratio 1.7 RATIO (0.9-2.4); AST(SGOT) 23 U/L (<=37); Alanine Aminotransfer ALT/SGPT 6 U/L (<=46); Albumin, Serum 3.7 g/dL (3.4-4.8); Alkaline Phosphatase 54 U/L (40-129); Anion Gap 10 (5-15); BUN 18 mg/dL (4-19); BUN/Creat Ratio 15.6 RATIO (10-20); Calcium,Total 8.9 mg/dL (7.6-11.0); Carbon Dioxide 21.7 mmol/L (21.0-32.0); Chloride 107 mmol/L (98-108); Creatinine, Serum 1.13 mg/dL (0.70-1.20); EST Glomerular Filtration Rate 67 (>60); Globulin 2.1 g/dL (2.2-4.2); Glucose 120 mg/dL (70-99); Potassium 3.8 mmol/L (3.3-5.1); Protein, Total 5.9 g/dL (5.9-8.4); Sodium Level 138 mmol/L (133-145)
== END | disposition home or self-care (01) ==
LOC: LAB 15:47
PROVIDERS: PCP Family Medicine Geriatric Medicine; Referring Provider Family Medicine Geriatric Medicine; Visit Provider Family Medicine Geriatric Medicine
DX: I10 Essential (primary) hypertension (principal); E55.9 Vitamin D deficiency, unspecified
CPT/HCPCS: 36415; 80053; 82306; 84443; 85025

== ENCOUNTER → 2024-09-09 | Outpatient (CLI) | payer MEDICARE, OTHER, SELFPAY | END | disposition home or self-care (01) | LOC: LABSPEC 08:59 | PROVIDERS: PCP Family Medicine Geriatric Medicine; Visit Provider Physician Assistant | DX: R39.9 Unspecified symptoms and signs involving the genitourinary system (principal) | CPT/HCPCS: 87077; 87086; 87088 ==

== ENCOUNTER → 2024-10-29 | Outpatient (CLI) | payer MEDICARE, OTHER, SELFPAY ==
[2024-10-29 16:37] LABS: PSA,Total - Annual Screen 2.74 ng/mL (0.02-4.00)
== END | disposition home or self-care (01) ==
LOC: LAB 15:20
PROVIDERS: PCP Family Medicine Geriatric Medicine; Referring Provider Nurse Practitioner; Visit Provider Nurse Practitioner
DX: Z12.5 Encounter for screening for malignant neoplasm of prostate (principal)
CPT/HCPCS: 36415; 84153; G0103

== ENCOUNTER → 2025-02-17 | Outpatient (CLI) | payer MEDICARE, OTHER, SELFPAY ==
[2025-02-17 16:17] LABS: Hematocrit 38.1 % (40-54); Hemoglobin 12.1 g/dL (13.0-16.5); Immature Granulocytes Count 0.010 X10^3/uL (0.0-0.0); Mean Corp Hgb Conc 31.8 g/dL (32-36); Mean Corpuscular Volume 81.8 fL (80-94); Mean Platelet Vol. 8.7 fl (6.2-12.0); NRBC Flagged by Analyzer 0 % (0-5); Platelet Count 338 K/mm3 (150-450); RBC Distribution Width CV 17.3 % (11.6-14.6); RBC Distribution Width SD 51.6 fl (35.1-43.9); Red Blood Count 4.66 M/mm3 (4.6-6.2); White Blood Count 5.0 K/mm3 (4.4-11.0)
[2025-02-17 16:56] LABS: AST(SGOT) 19 U/L (<=37); Alanine Aminotransfer ALT/SGPT 11 U/L (<=46); Albumin, Serum 3.9 g/dL (3.4-4.8); Alkaline Phosphatase 177 U/L (40-129); Anion Gap 10 (5-15); BUN 23 mg/dL (4-19); BUN/Creat Ratio 16.0 RATIO (10-20); Calcium,Total 9.0 mg/dL (7.6-11.0); Carbon Dioxide 23.7 mmol/L (21.0-32.0); Chloride 108 mmol/L (98-108); Globulin 3.3 g/dL (2.2-4.2); Glucose 112 mg/dL (70-99); Potassium 4.4 mmol/L (3.3-5.1); Vitamin D,25 Hydroxy 54.5 ng/mL (30-100)
[2025-02-17 23:54] LABS: Xtra Tube Kwok EXTRA TUBE
== END | disposition home or self-care (01) ==
LOC: POLAB3 15:54
PROVIDERS: PCP Family Medicine Geriatric Medicine; Visit Provider Family Medicine Geriatric Medicine
DX: I10 Essential (primary) hypertension (principal); E55.9 Vitamin D deficiency, unspecified
CPT/HCPCS: 36415; 80053; 82306; 84443; 85025

== ENCOUNTER → 2025-04-20 | Outpatient (CLI) | payer MEDICARE, OTHER, SELFPAY | END | disposition home or self-care (01) | LOC: LABSPEC 16:43 | PROVIDERS: PCP Family Medicine Geriatric Medicine; Referring Provider Physician Assistant; Visit Provider Physician Assistant | DX: R39.9 Unspecified symptoms and signs involving the genitourinary system (principal) | CPT/HCPCS: 87086; 87088 ==

== ENCOUNTER → 2025-04-22 | Outpatient (CLI) | payer MEDICARE, OTHER, SELFPAY ==
[2025-04-22 17:57] LABS: Hematocrit 39.4 % (40-54); Hemoglobin 12.6 g/dL (13.0-16.5); Mean Corp Hgb Conc 32.0 g/dL (32-36); Mean Corpuscular Volume 84.4 fL (80-94); Mean Platelet Vol. 9.2 fl (6.2-12.0); Platelet Count 414 K/mm3 (150-450); RBC Distribution Width CV 14.6 % (11.6-14.6); RBC Distribution Width SD 44.2 fl (35.1-43.9); Red Blood Count 4.67 M/mm3 (4.6-6.2); White Blood Count 6.6 K/mm3 (4.4-11.0)
[2025-04-22 18:24] LABS: Magnesium 2.4 mg/dL (1.5-2.2)
[2025-04-22 18:27] LABS: AST(SGOT) 22 U/L (<=37); Alanine Aminotransfer ALT/SGPT < 5 U/L (<=46); Albumin, Serum 3.9 g/dL (3.4-4.8); Alkaline Phosphatase 160 U/L (40-129); Anion Gap 12 (5-15); BUN 18 mg/dL (4-19); BUN/Creat Ratio 14.2 RATIO (10-20); Calcium,Total 9.0 mg/dL (7.6-11.0); Carbon Dioxide 21.8 mmol/L (21.0-32.0); Chloride 105 mmol/L (98-108); Globulin 3.3 g/dL (2.2-4.2); Glucose 84 mg/dL (70-99); Potassium 4.3 mmol/L (3.3-5.1)
== END | disposition home or self-care (01) ==
LOC: MTLAB 15:25
PROVIDERS: PCP Family Medicine Geriatric Medicine; Referring Provider Psychiatry & Neurology Neurology; Visit Provider Psychiatry & Neurology Neurology
DX: R26.9 Unspecified abnormalities of gait and mobility (principal)
CPT/HCPCS: 36415; 80053; 83735; 85027

== ENCOUNTER → 2025-05-03 | Outpatient (CLI) | payer MEDICARE, OTHER, SELFPAY ==
--- NOTE | 2025-05-03 15:38 | MRI_ITS ---
PROCEDURE: SPINE LUMBAR (ROUTINE) 05/03/2025 REASON FOR EXAM: LOW BACK PAIN; GAIT DISORDER TECHNIQUE: Procedure Code: MRISPL Modality: MR Procedure: SPINE LUMBAR (ROUTINE) COMPARISON: None available. FINDINGS: Some images are degraded by motion artifact, mildly limiting evaluation. For the purposes of this report, the most caudal rectangular vertebral body will be designated L5. The next most caudal trapezoidal shaped vertebral body will be designated S1. The intervening disc at the lumbosacral angle is designated L5-S1. The normal lumbar lordosis is maintained. The lumbar vertebral bodies are normal in height. Grade 1 L5-S1 retrolisthesis. The lumbar bone marrow signal is within normal limits. Multilevel disc desiccation. Intervertebral disc space height loss at L5-S1. There is no evidence of signal abnormality in the imaged distal spinal cord. The conus medullaris terminates at the level of L1. T12-L1: No significant spinal canal stenosis or neural foraminal narrowing. There is a right perineural cyst. L1-L2: No significant spinal canal stenosis or neural foraminal narrowing. L2-L3: Disc bulge, bilateral facet arthrosis, and ligamentum flavum hypertrophy. Mild spinal canal stenosis. Mild bilateral neural foraminal narrowing. L3-L4: Disc bulge, bilateral facet arthrosis, and ligamentum flavum hypertrophy all contribute to moderate spinal canal stenosis and subarticular zone narrowing. Mild bilateral neural foraminal narrowing. L4-L5: Disc bulge, bilateral facet arthrosis, and ligamentum flavum hypertrophy. Mild spinal canal stenosis and subarticular zone narrowing. Moderate bilateral neural foraminal narrowing. L5-S1: Disc bulge with superimposing central disc extrusion with mild caudal migration, bilateral facet arthrosis, and ligamentum flavum hypertrophy. Mild spinal canal stenosis. [id number] bilateral neural foraminal narrowing. Tarlov cysts at S2. Mild fatty atrophy of the posterior paraspinal muscles. There are bilateral renal cysts. MRI/Spine Lumbar (Routine) IMPRESSION: Lumbar spondylosis most prominent at L3-L4 where there is moderate spinal canal stenosis predominantly secondary to disc bulge and at L5-S1 where there is [id number] bilateral neural foraminal steno sis predominantly secondary to disc bulge and facet arthrosis. No high-grade spinal canal stenosis in the lumbar spine. Add itional details as discussed above. Reading Location: [id number]
--- NOTE | 2025-05-03 15:38 | MRI_ITS ---
PROCEDURE: SPINE CERVICAL (ROUTINE) 05/03/2025 REASON FOR EXAM: GAIT DISORDER; BLE HYPERTONIA; ? MYELOPATHY TECHNIQUE: Procedure Code: MRISP Modality: MR Procedure: SPINE CERVICAL (ROUTINE) Multiplanar and multisequence images were obtained without IV contrast administration. COMPARISON: None available. FINDINGS: Questionable chronic lacunar infarct in the left cerebellum. Otherwise, the visualized posterior fossa contents appear within normal limits. The normal cervical lordosis is maintained. The atlantooccipital and atlantoaxial joints appear normally aligned. The cervical vertebral bodies are normal in height. The cervical vertebral bodies are normal in alignment. The cervical bone marrow signal is within normal limits. Multilevel disc desiccation and intervertebral disc space height loss. There is no evidence of cervical spinal cord signal abnormality. C2-C3: No significant spinal canal stenosis or neural foraminal narrowing. C3-C4: Right foraminal disc protrusion, bilateral facet arthrosis, and uncovertebral spurring. Mild spinal canal stenosis. Moderate bilateral neural foraminal narrowing. C4-C5: Disc bulge, bilateral facet arthrosis, and uncovertebral spurring. Mild spinal canal stenosis. Mild bilateral neural foraminal narrowing. C5-C6: Posterior disc osteophyte complex, bilateral facet arthrosis, and uncovertebral spurring. Mild spinal canal stenosis. Mild bilateral neural foraminal narrowing. C6-C7: Posterior disc osteophyte complex, bilateral facet arthrosis, and uncovertebral spurring. Mild spinal canal stenosis. Moderate right and mild left neural foraminal narrowing. C7-T1: Central disc protrusion contributes to mild spinal canal stenosis. No significant neural foraminal narrowing. MRI/Spine Cervical (Routine) IMPRESSION: Cervical spondylosis without high-grade spinal canal stenosis. Multiple levels of mild and moderate neural foraminal stenosis. Reading Location: [id number]
== END | disposition home or self-care (01) ==
LOC: OPMRI 15:32
PROVIDERS: PCP Family Medicine Geriatric Medicine; Referring Provider Psychiatry & Neurology Neurology; Visit Provider Psychiatry & Neurology Neurology
DX: M54.50 Low back pain, unspecified (principal); R26.9 Unspecified abnormalities of gait and mobility
CPT/HCPCS: 72141; 72148